=== PATIENT | male | born 1965 | race Caucasian/White ===

== ENCOUNTER 2021-06-18 13:54 | Outpatient (REF) | payer OTHER, SELFPAY ==
[2021-06-18 15:19] LABS: Influenza A PCR NEGATIVE (Negative); Influenza B PCR NEGATIVE (Negative); Resp Syncy Virus RNA Qual PCR NEGATIVE (Negative); SARS COV2 PCR INHOUSE NEGATIVE (Negative)
== END 2021-06-18 13:55 | disposition home or self-care (01) ==
LOC: HO.LNP 13:54
PROVIDERS: Visit Provider Internal Medicine
DX: Z20.822 Contact with and (suspected) exposure to COVID-19 (principal); R43.9 Unspecified disturbances of smell and taste
CPT/HCPCS: 0241U

== ENCOUNTER 2021-07-30 09:25 | Emergency (ER) | payer OTHER, SELFPAY ==
--- NOTE | ~2021-07-30 | XR_ITS ---
EXAMINATION: XR CHEST CLINICAL INFORMATION: Chest pain COMPARISON: None TECHNIQUE: 2 views of the chest were obtained. FINDINGS: The lungs are well-expanded and clear. The heart size and pulmonary vascularity is normal. There is old fracture right anterior second rib. XR/XR chest 2V IMPRESSION: Unremarkable chest examination.
--- NOTE | ~2021-07-30 | CT_ITS ---
EXAMINATION: CT ANGIOGRAM OF THE CHEST WITH AND WITHOUT CONTRAST (CT PULMONARY ANGIOGRAM FOR PE) CLINICAL INFORMATION: Reason for Exam SOB, pleuritic CP, elevated dimer COMPARISON: Chest x-ray from earlier the same day TECHNIQUE: Prior to contrast administration, noncontrast localization images were obtained. Subsequently, multidetector volumetric imaging was performed from the thoracic inlet to below the diaphragms following the administration of 65 mL Omnipaque 350 intravenous contrast. No contrast reaction reported Sagittal, coronal, and MIP oblique sagittal reformatted images were obtained on the CT workstation, uploaded to PACS, and reviewed. This CT examination was performed using dose optimization techniques as appropriate, variously including the following: *Automated exposure control *Adjustment of mA and/or kV according to patient size (this includes techniques or standardized protocols for targeted exams where dose is matched to indication/reason for exam; i.e. extremities or head) *Use of iterative reconstruction technique Total exam dose-length product 299 mGy-cm FINDINGS: QUALITY OF STUDY/CONTRAST BOLUS: Satisfactory. PULMONARY ARTERIES: No central or segmental pulmonary emboli. THORACIC AORTA: No aneurysm or dissection. LUNG: No focal consolidation, nodules or masses. PLEURA: No pleural effusion or pneumothorax. MEDIASTINUM: Normal heart size. No pericardial effusion. No hilar or mediastinal lymphadenopathy. No evidence of septal bowing or right heart strain. There is an esophageal hernia. CHEST WALL/AXILLA: No axillary or internal mammary lymphadenopathy. OSSEOUS STRUCTURES: There are multiple old right rib fractures. There are old lower left rib fractures. No acute rib fracture is seen. There is increased thoracic kyphosis and degenerative changes of the spine. . UPPER ABDOMEN: Unremarkable. No reflux of contrast into the hepatic veins to suggest elevated right heart pressures. CT/CT angio chest PE protocol IMPRESSION: No evidence of pulmonary embolism. Esophageal hernia. Old bilateral rib fractures, right greater than left. No acute rib fracture seen. VTE: negative
--- NOTE | 2021-07-30 09:26 | ECG_ITS ---
Test Reason : cp Blood Pressure : / mmHG Vent. Rate : 066 BPM Atrial Rate : 066 BPM P-R Int : 142 ms QRS Dur : 082 ms QT Int : 378 ms P-R-T Axes : 022 -05 -05 degrees QTc Int : 396 ms Normal sinus rhythm Normal ECG No previous ECGs available Referred By: Generic ED Physician Electronically Signed By:TYSON ANDREWS MD
[2021-07-30 10:05] VITALS: BP 118/84; PULSE 70; RESP 18; TEMP 36.8; O2SAT 99; BMI 25.1
[2021-07-30 10:34] LABS: MANUAL DIFF FLAG NO
[2021-07-30 10:36] LABS: Basophils Percent Auto 0.6 % (0-2); Eosinophils Absolute Auto 0.1 X10*3/uL (0.0-0.4); Eosinophils Percent Auto 1.5 % (0-4); Hematocrit 44.6 % (42.0-52.0); Hemoglobin 15.7 g/dl (14.0-18.0); Imm Gran Abs Auto 0.03 X10*3/uL (0.00-0.03); Imm Gran Pct Auto 0.4 % (0.0-0.4); Lymphocytes Absolute Auto 1.6 X10*3/uL (1.2-4.9); Lymphocytes Percent Auto 24.4 % (20-40); Mean Corpuscular HGB Conc 35.2 g/dl (31.0-36.0); Mean Corpuscular Hemoglobin 34.8 pg (27.0-33.0); Mean Corpuscular Volume 98.9 fL (80.0-98.0); Monocytes Absolute Auto 0.8 X10*3/uL (0.1-1.2); Monocytes Percent Auto 11.5 % (2-11); Neutrophils Absolute Auto 4.1 x10*3/uL (2.0-8.3); Neutrophils Percent Auto 61.6 % (45-73); Platelet Count 200 X10*3/uL (160-400); Red Blood Count 4.51 X10*6/uL (4.60-5.80); Red Cell Distribution Width 11.2 % (11.0-16.0); White Blood Count 6.7 X10*3/uL (4.8-10.8)
[2021-07-30 10:54] LABS: Alanine Aminotransferase 77 U/L (0-40); Albumin Level 4.5 g/dL (3.5-5.0); Alkaline Phosphatase 84 U/L (39-117); Anion Gap 13 (12-20); Aspartate Amino Transferase 80 U/L (5-37); Bilirubin Total 0.9 mg/dL (0.0-1.0); Blood Urea Nitrogen 13 mg/dL (9-16); COVID-19 Test Negative (Negative); Calcium 9.8 mg/dL (8.4-10.2); Carbon Dioxide 32 mmol/L (22-29); Chloride 102 mmol/L (96-108); Creatinine Clr Calc Pharmacy 92.8; Estimated Glomerular Filt Rate > 60; Glucose Random 71 mg/dL (60-115); Potassium 4.5 mmol/L (3.3-5.1); Sodium 142 mmol/L (135-145); Total Protein 7.2 g/dL (6.5-8.0)
[2021-07-30 10:59] LABS: Troponin-I High Sensitivity < 3.5 ng/L (<3.5-35.0)
--- NOTE | 2021-07-30 11:47 | ED.CHESTPAIN ---
HPI - Chest Pain General Chief Complaint: Chest Pain Stated Complaint: chest pain Time Seen by Provider: 07/30/21 11:47 Source: patient Mode of arrival: ambulatory Limitations: no limitations History of Present Illness HPI narrative: This is a 55-year-old male with no known medical history presenting to the emergency department with a chief complaint of I am having a heart attack . Patient tells me that yesterday he was having pain to his left chest, described as stabbing and then he tells me it feels like somebody is punching him in the left chest. He tells me it hurts when he presses on his chest so he knows that this is a heart attack. He tells me that he spoke to his brother who has had instant before secondary to heart attack, and his brother told me should be evaluated. Tells me his chest pain is worse with palpation, worse with sneezing and coughing and better at rest. He denies any trauma to the anterior chest. He tells me that at this time his chest pain is a 3/10. He says yesterday his pain was a 10/10, he denies diaphoresis or shortness of breath when the chest pain started. He tells me he was resting on his bed when it started. I asked him if he feels anxious and he denies. Patient does tell me that he is getting over a head cold. He denies shortness of breath, nausea, vomiting, fevers, chills, abdominal pain, diarrhea. MD complaint: chest pain Onset (ago): day(s) (2) Timing of current episode: constant Prior episodes: No Onset: during rest Pain location: left chest Pain radiation: none Severity: mild Pain scale (0-10): 3 Relieving factors: nothing Exacerbating factors: nothing Context: recent illness (improving from a head cold ) Treatment prior to arrival: none Related Data Previous Rx's Medication Instructions Recorded albuterol sulfate 90 mcg/actuation 1 inh INHALATION Q4-6H PRN #1 ea 06/18/21 breath activated powder inhaler azithromycin 250 mg tablet See Rx Instructions PO .COMPLEX #6 06/18/21 tab meloxicam 15 mg tablet 15 mg PO DAILY #14 tab 06/18/21 cyclobenzaprine 10 mg tablet 10 mg PO BEDTIME PRN #7 tab 07/30/21 naproxen 500 mg tablet 500 mg PO BID PRN #14 tab 07/30/21 Allergies Allergy/AdvReac Type Severity Reaction Status Date / Time No Known Allergies Allergy Verified 07/30/21 10:05 Review of Systems Review of Systems: Constitutional : No Weight loss, No Fever, No Chills, No Fatigue, No Malaise ENT/Mouth : No sore throat, No Rhinorrhea Eyes: No Eye Pain, No Swelling, No Redness Cardiovascular : + Chest Pain, No SOB, No Dyspnea on Exertion, No Orthopnea, No Edema, No Palpitations Respiratory : No Cough, No Sputum, No Wheezing Gastrointestinal : No Nausea, No Vomiting, No Diarrhea, No Constipation, No abdominal Pain, No Hematochezia, No Melena Genitourinary : No Dysuria, No Urinary Frequency, No Hematuria, Musculoskeletal : No joint pain, No Myalgias, No Joint Swelling Skin : No Skin Lesions, No rash Neuro : No Weakness, No Numbness, No Dizziness, No Headache All other systems reviewed and are negative Yes all other systems are reviewed and are negative [facility] Past Medical History Attestation statement: The following information was validated with the patient. Source: old records reviewed and nursing notes reviewed Social History Social History Alcohol intake: current Alcohol intake frequency: holidays/special occasions only Patient Tobacco Use Status: Former Tobacco user Use of substances other than those prescribed or required for medical reasons: No Advance Directives: No Advance Directives Information Provided: No Physical Exam Vital Signs: Vital Signs: Last Vital Signs Temp 98.2 F 07/30/21 10:05 Pulse 63 07/30/21 12:15 Resp 18 07/30/21 10:05 BP 129/83 07/30/21 12:15 Pulse Ox 100 07/30/21 12:15 BMI result Body Mass Index 25.1 VSS Appearance: Alert.? Oriented X3.? No acute distress.? Head: Normocephalic, atraumatic, no step-offs or deformities Eyes: Pupils equal, round and reactive to light.? ENT: Pharynx normal.? Neck: Normal inspection.? Neck supple.? CVS: Normal heart rate and rhythm.? Pulses normal.?+ Pain with palpation of anterior chest particularly on the left-hand side. Respiratory: No respiratory distress.? Breath sounds normal.? Abdomen: Soft and nontender.? Skin: Skin warm and dry.? Normal skin color.? Normal skin turgor.? Extremities: No lower extremity edema.? No calf ttp. 5/5 strength to bilateral upper and lower extremities Back: No midline tenderness, no C-spine tenderness, full range of motion, no CVA tenderness bilaterally Neuro: Oriented X 3.? No motor deficit.? No sensory deficit. Course Reevaluation(s) Reevaluation #1: No leukocytosis, no anemia. Transaminases are noted to be slightly elevated, likely secondary to alcohol use. Troponin negative. EKG free of ischemia. Unlikely ACS. Patient is COVID negative. Chest x-ray no acute findings. Time: 11:49 Reevaluation #2: Dimer elevated CTA ordered. Time: 14:46 Reevaluation #3: CTA negative for VTE/PE. At this time patient tells me he has a sore chest. No chest pain. Vital signs are stable. patient appears well, no acute distress.Comfortable w/ dc home likely chostochondritis. Low suspicion for ACS/PE. Comfortable with discharge home with PCP follow-up. Time: 15:34 MDM - Chest Pain MDM Narrative Medical decision making narrative: 1147 55 yo M presents with a CC I am having a heart attack since last night, reports left anterior chest wall pain. Chest pain is worse with movement, worse with palpation, worse with sneezing and inspiration. Upon physical examination patient reports pain with palpation of the left anterior chest wall. No overlying skin changes. No step-offs. Regular rate and rhythm. Lungs clear. Abdomen soft nontender nondistended. Neuro exam nonfocal. Based off patient history and physical examination I do not suspect ACS however this will be ruled out. I will also order a D-dimer to rule out PE, Although unlikely. Based off physical exam and patient history it is likely that this is costochondritis. Plan- basic labs, trop, EKG, cardiac monitoring Medical Records Data Attestation: I reviewed the patient's medical records. Lab Data Attestation: I reviewed the patient's lab results. Result diagrams: 07/30/21 10:30 07/30/21 10:30 Labs: Lab Results 07/30/21 07/30/21 07/30/21 Range/Units 10:30 10:30 10:30 WBC 6.7 (4.8-10.8) X10*3/uL RBC 4.51 L (4.60-5.80) X10*6/uL Hgb 15.7 (14.0-18.0) g/dl Hct 44.6 (42.0-52.0) % MCV 98.9 H (80.0-98.0) fL MCH 34.8 H (27.0-33.0) pg MCHC 35.2 (31.0-36.0) g/dl RDW 11.2 (11.0-16.0) % Plt Count 200 (160-400) X10*3/uL MPV 10.0 (9.4-12.4) fL Immature Gran % (Auto) 0.4 (0.0-0.4) % Neut % (Auto) 61.6 (45-73) % Lymph % (Auto) 24.4 (20-40) % [place] % (Auto) 11.5 H (2-11) % Eos % (Auto) 1.5 (0-4) % Baso % (Auto) 0.6 (0-2) % Lymph # (Auto) 1.6 (1.2-4.9) X10*3/uL [place] # (Auto) 0.8 (0.1-1.2) X10*3/uL Eos # (Auto) 0.1 (0.0-0.4) X10*3/uL Baso # (Auto) 0.0 (0.0-0.2) X10*3/uL Abs Immat Gran (auto) 0.03 (0.00-0.03) X10*3/uL Absolute Neuts (auto) 4.1 (2.0-8.3) x10*3/uL Absolute Nucleated RBC 0.000 (0.0-0.012) X10*3/uL Nucleated RBC % (auto) 0.0 (0.0-0.2) /100WBC D-Dimer High Sensitivty NG/ML Sodium 142 (135-145) mmol/L Potassium 4.5 (3.3-5.1) mmol/L Chloride 102 (96-108) mmol/L Carbon Dioxide 32 H (22-29) mmol/L Anion Gap 13 (12-20) BUN 13 (9-16) mg/dL Creatinine 0.92 (0.5-1.4) mg/dL Estim Creat Clear Calc 92.8 Estimated GFR > 60 Random Glucose 71 (60-115) mg/dL Calcium 9.8 (8.4-10.2) mg/dL Total Bilirubin 0.9 (0.0-1.0) mg/dL AST 80 H (5-37) U/L ALT 77 H (0-40) U/L Alkaline Phosphatase 84 (39-117) U/L Troponin I High Sens < 3.5 (<3.5-35.0) ng/L Total Protein 7.2 (6.5-8.0) g/dL Albumin 4.5 (3.5-5.0) g/dL COVID-19 (ALISIA) (Negative) COVID-19 Clin Com 07/30/21 07/30/21 Range/Units 10:30 12:21 WBC (4.8-10.8) X10*3/uL RBC (4.60-5.80) X10*6/uL Hgb (14.0-18.0) g/dl Hct (42.0-52.0) % MCV (80.0-98.0) fL MCH (27.0-33.0) pg MCHC (31.0-36.0) g/dl RDW (11.0-16.0) % Plt Count (160-400) X10*3/uL MPV (9.4-12.4) fL Immature Gran % (Auto) (0.0-0.4) % Neut % (Auto) (45-73) % Lymph % (Auto) (20-40) % [place] % (Auto) (2-11) % Eos % (Auto) (0-4) % Baso % (Auto) (0-2) % Lymph # (Auto) (1.2-4.9) X10*3/uL [place] # (Auto) (0.1-1.2) X10*3/uL Eos # (Auto) (0.0-0.4) X10*3/uL Baso # (Auto) (0.0-0.2) X10*3/uL Abs Immat Gran (auto) (0.00-0.03) X10*3/uL Absolute Neuts (auto) (2.0-8.3) x10*3/uL Absolute Nucleated RBC (0.0-0.012) X10*3/uL Nucleated RBC % (auto) (0.0-0.2) /100WBC D-Dimer High Sensitivty 433 NG/ML Sodium (135-145) mmol/L Potassium (3.3-5.1) mmol/L Chloride (96-108) mmol/L Carbon Dioxide (22-29) mmol/L Anion Gap (12-20) BUN (9-16) mg/dL Creatinine (0.5-1.4) mg/dL Estim Creat Clear Calc Estimated GFR Random Glucose (60-115) mg/dL Calcium (8.4-10.2) mg/dL Total Bilirubin (0.0-1.0) mg/dL AST (5-37) U/L ALT (0-40) U/L Alkaline Phosphatase (39-117) U/L Troponin I High Sens (<3.5-35.0) ng/L Total Protein (6.5-8.0) g/dL Albumin (3.5-5.0) g/dL COVID-19 (ALISIA) Negative (Negative) COVID-19 Clin Com See Note Imaging Data Chest x-ray: Attestation: I personally reviewed and interpreted this imaging study as follows: Radiologist's impression: FINDINGS: The lungs are well-expanded and clear. The heart size and pulmonary vascularity is normal. There is old fracture right anterior second rib. XR/XR chest 2V IMPRESSION: Unremarkable chest examination. ECG Data ECG #1: Attestation: I personally reviewed and interpreted this ECG as follows: ECG interpretation date: 07/30/21 ECG interpretation time: 09:27 Prior ECG tracings: not available for review Interpretation: ventricular rate of 66, ME normal, QRS normal, QT / QTC normal. EKG shows normal sinus rhythm. No ST elevations or inversions. No acute ischemia no previous to compare with. Critical Care Time Critical Care Time Critical Care Time: No Discharge Plan Discharge Clinical Impression: Anterior chest wall pain, Costochondritis, Esophageal hernia Patient Disposition: Home, Self-Care Instructions: Costochondritis (ED), Chest Wall Pain (ED) Additional Instructions: Take your medications as prescribed. If you were prescribed antibiotics today, it is important that you take your medication to their entirety, do not skip any doses, do not finish them early. Follow-up with your primary care provider this week. Return to the emergency department with new or worsening symptoms. In case of emergency call 911 COVID-19 negative today. Prescriptions: New naproxen 500 mg tablet 500 mg PO BID PRN (Reason: pain) Qty: 14 RF: 0 cyclobenzaprine 10 mg tablet 10 mg PO BEDTIME PRN (Reason: muscle spasm) Qty: 7 RF: 0 No Action azithromycin 250 mg tablet See Rx Instructions PO .COMPLEX Qty: 6 RF: 0 albuterol sulfate 90 mcg/actuation aerosol powdr breath activated 1 inh inhalation Q4-6H PRN (Reason: shortness of breath or wheezing) Qty: 1 RF: 0 meloxicam 15 mg tablet 15 mg PO DAILY Qty: 14 RF: 0 Referrals: Physician,Unknown J [Primary Care Provider] - 2 days Stand Alone Forms: Work/School Release
[2021-07-30 12:15] VITALS: BP 129/83; PULSE 63; O2SAT 100
[2021-07-30 12:44] LABS: D Dimer High Sensitivity 433 NG/ML
[2021-07-30] MEDS: iohexoL 350 MG/ML 100 ML INFUS..BTL 65 ML IV (15:03)
== END 2021-07-30 15:48 | disposition home or self-care (01) ==
PROVIDERS: Physician Assistant; Emergency Provider Emergency Medicine
DX: R07.89 Other chest pain (principal); M94.0 Chondrocostal junction syndrome [Tietze]; K44.9 Diaphragmatic hernia without obstruction or gangrene; Z20.822 Contact with and (suspected) exposure to COVID-19
CPT/HCPCS: 36415; 71046; 71275; 80053; 84484; 85025; 85379; 87635; 93005; 99284; Q9967

== ENCOUNTER 2021-10-15 12:49 | Inpatient (IN) | payer OTHER, SELFPAY ==
[2021-10-15] VITALS (7 sets, daily range): BP systolic 129–173; BP diastolic 84–91; PULSE 65–84; RESP 16–19; TEMP 36.1–36.7; O2SAT 95–98; BMI 25.1
--- NOTE | ~2021-10-15 | XR_ITS ---
EXAMINATION: XR RIBS, RIGHT CLINICAL INFORMATION: Fall. Back and rib pain. COMPARISON: Previous chest x-ray and chest CTA July 2021 TECHNIQUE: 3 views of the right ribs and one view of the chest were obtained. FINDINGS: The cardiac and mediastinal contours are stable. There is an air-fluid level that projects over the heart probably representing an esophageal hernia. Hilar and mediastinal contours are otherwise unremarkable. The lungs are clear. There is no pleural effusion or pneumothorax. There are multiple right-sided rib fractures of varying ages. There are acute right anterior 10th and 11th rib fractures. There are degenerative changes of the spine. XR/XR ribs RT min 3V w CXR1V IMPRESSION: Multiple right-sided rib fractures of varying ages. Acute right anterior 10th and 11th rib fractures. No evidence for acute disease in the chest.
--- NOTE | ~2021-10-15 | CT_ITS ---
EXAMINATION: CT CHEST, ABDOMEN AND PELVIS WITH CONTRAST CLINICAL INFORMATION: Fall and trauma with multiple rib fracture COMPARISON: CT angiogram of the chest 07/30/2021. TECHNIQUE: Multidetector volumetric imaging was performed from the thoracic inlet through the pubic symphysis following the uneventful administration of: Oral contrast: No Intravenous contrast: 100 mL Omnipaque 300 Sagittal and coronal reformatted images were obtained on the technologist workstation. This CT examination was performed using dose optimization techniques as appropriate, variously including the following: *Automated exposure control *Adjustment of mA and/or kV according to patient size (this includes techniques or standardized protocols for targeted exams where dose is matched to indication/reason for exam; i.e. extremities or head) *Use of iterative reconstruction technique FINDINGS: CHEST: LUNG: No nodules, mass, or focal consolidation. MEDIASTINUM: The mediastinum in normal. The central vascular structures are unremarkable. No hilar or mediastinal lymphadenopathy. Moderate hiatal hernia. PLEURA: No significant effusion. No pleural mass or thickening. CHEST WALL/AXILLA: In addition to numerous old right-sided rib fractures (second through ninth), there are mildly displaced acute right posterior 10, 11, and 12 rib fractures. Healing left anterior fourth rib fracture. ABDOMEN/PELVIS: LIVER, GALLBLADDER, AND BILIARY TREE: Diffuse hepatic steatosis. The gallbladder is unremarkable with no evidence of radiopaque gallstones, gallbladder wall thickening, or obvious pericholecystic inflammatory changes. PANCREAS: Normal; no mass or surrounding fluid. SPLEEN: Normal size. No focal lesion. ADRENAL GLANDS: Normal; no mass. KIDNEYS AND URETERS: The kidneys are normal in size, shape, and attenuation. No hydronephrosis, hydroureter, or calculi. GASTROINTESTINAL TRACT: Stomach and small bowel non-dilated. No colonic wall thickening or pericolonic inflammatory changes. Normal appendix. ABDOMINAL WALL: Fat within the inguinal canals bilaterally. LYMPHOVASCULAR STRUCTURES: No lymphadenopathy. The aorta is unremarkable. BLADDER: No focal mass or wall thickening seen. No bladder calculi. PELVIC VISCERA: The prostate and seminal vesicles are normal. OSSEOUS STRUCTURES: There are right first and second transverse process fractures. There does appear to be some fracture callus formation suggesting these are subacute. CT/CT abdomen pelvis w con IMPRESSION: Mildly displaced acute right posterior 10th, 11th, and 12th rib fractures. Subacute right L1 and L2 transverse process fractures. Remote bilateral rib fractures. Diffuse hepatic steatosis. No evidence of solid visceral organ injury in the chest, abdomen, or pelvis.
--- NOTE | ~2021-10-15 | CT_ITS ---
EXAMINATION: CT HEAD WITHOUT CONTRAST CT CERVICAL SPINE WITHOUT CONTRAST CLINICAL INFORMATION: Dizziness. Fall. Closed head injury. COMPARISON: CT head 05/31/2009 TECHNIQUE: Imaging was performed from the skull base to vertex without intravenous administration of contrast. In addition, helical noncontrast CT imaging was acquired through the cervical spine and source images were reviewed along with axial reconstructions and sagittal and coronal MPRs. [This CT examination was performed using dose optimization techniques as appropriate, variously including the following: *Automated exposure control *Adjustment of mA and/or kV according to patient size (this includes techniques or standardized protocols for targeted exams where dose is matched to indication/reason for exam; i.e. extremities or head) *Use of iterative reconstruction technique] DLP: 949 mGy-cm FINDINGS: HEAD: No intracranial mass, hemorrhage, or midline shift is visualized. The ventricles and sulci are proportional. No extra-axial collections are identified. The paranasal sinuses and mastoid air cells are well aerated. CERVICAL SPINE: There is no evidence of acute cervical spine fracture. Vertebral bodies remain normal in height. Cervical vertebrae have normal alignment. There is multilevel degenerative spondylosis of the cervical spine with disc height narrowing and endplate spurs and facet joint arthrosis No pre- or paravertebral soft tissue abnormality is identified. Limited assessment of the lung apices is unremarkable. Small retention cyst inferior maxillary sinuses bilaterally. CT/CT cervical spine wo con IMPRESSION: 1. No acute intracranial pathology. 2. No CT evidence of acute cervical spine fracture or traumatic subluxation
--- NOTE | ~2021-10-15 | CT_ITS ---
EXAMINATION: CT HEAD WITHOUT CONTRAST CT CERVICAL SPINE WITHOUT CONTRAST CLINICAL INFORMATION: Dizziness. Fall. Closed head injury. COMPARISON: CT head 05/31/2009 TECHNIQUE: Imaging was performed from the skull base to vertex without intravenous administration of contrast. In addition, helical noncontrast CT imaging was acquired through the cervical spine and source images were reviewed along with axial reconstructions and sagittal and coronal MPRs. [This CT examination was performed using dose optimization techniques as appropriate, variously including the following: *Automated exposure control *Adjustment of mA and/or kV according to patient size (this includes techniques or standardized protocols for targeted exams where dose is matched to indication/reason for exam; i.e. extremities or head) *Use of iterative reconstruction technique] DLP: 949 mGy-cm FINDINGS: HEAD: No intracranial mass, hemorrhage, or midline shift is visualized. The ventricles and sulci are proportional. No extra-axial collections are identified. The paranasal sinuses and mastoid air cells are well aerated. CERVICAL SPINE: There is no evidence of acute cervical spine fracture. Vertebral bodies remain normal in height. Cervical vertebrae have normal alignment. There is multilevel degenerative spondylosis of the cervical spine with disc height narrowing and endplate spurs and facet joint arthrosis No pre- or paravertebral soft tissue abnormality is identified. Limited assessment of the lung apices is unremarkable. Small retention cyst inferior maxillary sinuses bilaterally. CT/CT head/brain wo con IMPRESSION: 1. No acute intracranial pathology. 2. No CT evidence of acute cervical spine fracture or traumatic subluxation
--- NOTE | 2021-10-15 14:53 | ECG_ITS ---
Test Reason : fall Blood Pressure : / mmHG Vent. Rate : 063 BPM Atrial Rate : 063 BPM P-R Int : 148 ms QRS Dur : 084 ms QT Int : 408 ms P-R-T Axes : 008 -02 009 degrees QTc Int : 417 ms Normal sinus rhythm Normal ECG When compared with ECG of 30-JUL-2021 09:27, No significant change was found Referred By: Generic ED Physician Electronically Signed By:Ayan Joy
[2021-10-15 15:21] LABS: MANUAL DIFF FLAG NO
[2021-10-15 15:24] LABS: Basophils Absolute Auto 0.1 X10*3/uL (0.0-0.2); Basophils Percent Auto 0.5 % (0-2); Eosinophils Absolute Auto 0.1 X10*3/uL (0.0-0.4); Eosinophils Percent Auto 0.6 % (0-4); Hematocrit 45.9 % (42.0-52.0); Imm Gran Abs Auto 0.04 X10*3/uL (0.00-0.03); Imm Gran Pct Auto 0.4 % (0.0-0.4); Mean Corpuscular HGB Conc 34.9 g/dl (31.0-36.0); Mean Corpuscular Hemoglobin 33.9 pg (27.0-33.0); Mean Corpuscular Volume 97.2 fL (80.0-98.0); Mean Platelet Volume 9.9 fL (9.4-12.4); Monocytes Absolute Auto 0.8 X10*3/uL (0.1-1.2); Monocytes Percent Auto 7.4 % (2-11); Neutrophils Absolute Auto 8.8 x10*3/uL (2.0-8.3); Neutrophils Percent Auto 82.1 % (45-73); Platelet Count 198 X10*3/uL (160-400); Red Blood Count 4.72 X10*6/uL (4.60-5.80); Red Cell Distribution Width 11.8 % (11.0-16.0); White Blood Count 10.7 X10*3/uL (4.8-10.8)
[2021-10-15 15:41] LABS: Anion Gap 20 (12-20); Blood Urea Nitrogen 11 mg/dL (9-16); Calcium 9.7 mg/dL (8.4-10.2); Carbon Dioxide 24 mmol/L (22-29); Chloride 102 mmol/L (96-108); Creatinine Clr Calc Pharmacy 104.2; Estimated Glomerular Filt Rate > 60; Glucose Random 102 mg/dL (60-115); Sodium 142 mmol/L (135-145)
[2021-10-15 15:49] LABS: Troponin-I High Sensitivity < 3.5 ng/L (<3.5-35.0)
--- NOTE | 2021-10-15 19:03 | ED_ITS ---
HPI - General Adult General Chief complaint: General Medical Stated complaint: fall - dizzines Time Seen by Provider: 10/15/21 19:00 Source: patient Mode of arrival: ambulatory Limitations: no limitations History of Present Illness HPI narrative: 56 years old male who came in for evaluation after mechanical fall Patient stated that he missed a step of a stair and fell down hitting his head and right side of the chest. Patient is been having right-sided chest pain increased with movement and taking a deep breath., patient declined using any drugs or drinking any alcohol. Complaining of right-sided chest wall pain. Related Data Previous Rx's Medication Instructions Recorded albuterol sulfate 90 mcg/actuation 1 inh INHALATION Q4-6H PRN #1 ea 06/18/21 breath activated powder inhaler azithromycin 250 mg tablet See Rx Instructions PO .COMPLEX #6 06/18/21 tab meloxicam 15 mg tablet 15 mg PO DAILY #14 tab 06/18/21 cyclobenzaprine 10 mg tablet 10 mg PO BEDTIME PRN #7 tab 07/30/21 naproxen 500 mg tablet 500 mg PO BID PRN #14 tab 07/30/21 Allergies Allergy/AdvReac Type Severity Reaction Status Date / Time No Known Allergies Allergy Verified 07/30/21 10:05 Review of Systems Review of Systems: All other systems are reviewed and are negative Constitutional: Reports as per HPI and Reports no additional constitutional complaints Eyes: Reports as per HPI and Reports no additional eye complaints Reports system reviewed and no additional complaints, except as documented Cardiovascular: Reports as per HPI and Reports no additional cardiovascular complaints Respiratory: Reports as per HPI and Reports no additional respiratory complaints Gastrointestinal: Reports as per HPI and Reports no additional gastrointestinal complaints Genitourinary: Reports no additional female genitourinary complaints Musculoskeletal: Reports no additional musculoskeletal complaints Skin/Breast: Reports system reviewed and no additional complaints, except as docu Psychiatric: Reports no additional psychiatric complaints Endocrine: Reports no additional endocrine complaints Hematologic/Lymphatic: Reports no additional hematologic/lymphatic complaints Allergic/Immunologic: Reports no additional allergic/immunologic complaints Reports system reviewed and no additional complaints, except as documented and Reports Abnormal speech present [facility] Social History Social History Alcohol intake: current Alcohol intake frequency: holidays/special occasions only Patient Tobacco Use Status: Former Tobacco user Advance Directives: No Advance Directives Information Provided: No Physical Exam ED Vital Signs: Vital Signs - 24 hr 10/15/21 13:11 10/15/21 15:12 10/15/21 19:30 Temperature 97 F 98.1 F Pulse Rate 84 69 Respiratory Rate 19 18 16 Blood Pressure 129/86 144/86 H Pulse Oximetry 97 97 10/15/21 19:32 10/15/21 19:55 10/15/21 20:00 Temperature 98 F Pulse Rate 65 72 Respiratory Rate 16 16 16 Blood Pressure 137/91 H Pulse Oximetry 98 95 BMI result Body Mass Index 25.1 Vital signs have been reviewed as appeared to be correct. Blood pressure normal. Heart rate normal. Respiration rate normal. Temperature normal. Oxygen saturation normal. Appearance: Alert. Oriented X3. Appear very uncomfortable Head: Normal external exam. Normocephalic. Atraumatic. No Serrato signs noted. No raccoon eyes noted Eyes: PERRLA. EOMI. Conjunctiva and sclera normal. Eyelids normal. ENT: TM's Normal. Pharynx normal. Uvula midline. Moist mucous membranes. No trismus noted. No drooling noted. No muffled voice noted. Neck: Normal inspection. Neck supple. FROM. No adenopathy. Thyroid Normal. No meningeal signs. No neck mass noted. CVS: Normal heart rate and rhythm. Heart sound normal. No murmurs noted. Pulses normal throughout. Respiratory: No respiratory distress. Painless inspiration. Breath sounds normal. No wheezes/rales/rhonchi noted. Right chest wall tenderness No accessory muscle usage noted or decreased air movement noted. Abdomen: Soft and nontender. Bowel sounds normal in all 4 quadrants. No diste ntion noted. No organomegaly noted. No visible injury noted. Back: Right CVA tenderness. Small area of ecchymosis on right CVA. Full range of motion noted. Skin: Skin warm and dry. Normal skin color. Normal skin turgor. No rashes/lesions/lacerations noted. Extremities: No lower extremity edema. Extremities exhibit normal range of motion. Extremities nontender. Neuro: Oriented X 3. Cranial nerve exam: II-XII are grossly intact No motor deficit. No sensory deficit. Reflexes normal. Course Course Course Narrative: Assessment and plan. 56 years old male felt unbalanced and missed 1 step of stair fell down, screening chest x-ray showed multiple rib fractures, patient requires multiple doses of analgesia in the ED and to get CT done. Awaiting for CT result of the head/C-spine/chest/abdomen. Case signed out to Dr. Hopkins for final disposition according to the CT result. Medical Decision Making Lab Data Result diagrams: 10/15/21 15:17 10/15/21 15:17 Labs: Lab Results 10/15/21 10/15/21 10/15/21 Range/Units 15:17 15:17 15:17 WBC 10.7 (4.8-10.8) X10*3/uL RBC 4.72 (4.60-5.80) X10*6/uL Hgb 16.0 (14.0-18.0) g/dl Hct 45.9 (42.0-52.0) % MCV 97.2 (80.0-98.0) fL MCH 33.9 H (27.0-33.0) pg MCHC 34.9 (31.0-36.0) g/dl RDW 11.8 (11.0-16.0) % Plt Count 198 (160-400) X10*3/uL MPV 9.9 (9.4-12.4) fL Immature Gran % (Auto) 0.4 (0.0-0.4) % Neut % (Auto) 82.1 H (45-73) % Lymph % (Auto) 9.0 L (20-40) % [place] % (Auto) 7.4 (2-11) % Eos % (Auto) 0.6 (0-4) % Baso % (Auto) 0.5 (0-2) % Lymph # (Auto) 1.0 L (1.2-4.9) X10*3/uL Walton # (Auto) 0.8 (0.1-1.2) X10*3/uL Eos # (Auto) 0.1 (0.0-0.4) X10*3/uL Baso # (Auto) 0.1 (0.0-0.2) X10*3/uL Abs Immat Gran (auto) 0.04 H (0.00-0.03) X10*3/uL Absolute Neuts (auto) 8.8 H (2.0-8.3) x10*3/uL Absolute Nucleated RBC 0.000 (0.0-0.012) X10*3/uL Nucleated RBC % (auto) 0.0 (0.0-0.2) /100WBC Sodium 142 (135-145) mmol/L Potassium 4.0 (3.3-5.1) mmol/L Chloride 102 (96-108) mmol/L Carbon Dioxide 24 (22-29) mmol/L Anion Gap 20 (12-20) BUN 11 (9-16) mg/dL Creatinine 0.81 (0.5-1.4) mg/dL Estim Creat Clear Calc 104.2 Estimated GFR > 60 Random Glucose 102 D (60-115) mg/dL Calcium 9.7 (8.4-10.2) mg/dL Troponin I High Sens < 3.5 (<3.5-35.0) ng/L Urine Color Urine Appearance Urine pH (5.0-8.0) Ur Specific [place] (1.005-1.025) Urine Protein (NEG-TRACE) MG/DL Urine Glucose (UA) (NEG) MG/DL Urine Ketones (NEG) MG/DL Urine Blood (NEG) Urine Nitrite (NEG) Ur Leukocyte Esterase (NEG) Urine RBC (0) /HPF Urine WBC (0-4) /HPF Ur Squamous Epith Cells /LPF Urine Bacteria /LPF Urine Mucus /LPF 10/15/21 Range/Units 20:05 WBC (4.8-10.8) X10*3/uL RBC (4.60-5.80) X10*6/uL Hgb (14.0-18.0) g/dl Hct (42.0-52.0) % MCV (80.0-98.0) fL MCH (27.0-33.0) pg MCHC (31.0-36.0) g/dl RDW (11.0-16.0) % Plt Count (160-400) X10*3/uL MPV (9.4-12.4) fL Immature Gran % (Auto) (0.0-0.4) % Neut % (Auto) (45-73) % Lymph % (Auto) (20-40) % [place] % (Auto) (2-11) % Eos % (Auto) (0-4) % Baso % (Auto) (0-2) % Lymph # (Auto) (1.2-4.9) X10*3/uL [place] # (Auto) (0.1-1.2) X10*3/uL Eos # (Auto) (0.0-0.4) X10*3/uL Baso # (Auto) (0.0-0.2) X10*3/uL Abs Immat Gran (auto) (0.00-0.03) X10*3/uL Absolute Neuts (auto) (2.0-8.3) x10*3/uL Absolute Nucleated RBC (0.0-0.012) X10*3/uL Nucleated RBC % (auto) (0.0-0.2) /100WBC Sodium (135-145) mmol/L Potassium (3.3-5.1) mmol/L Chloride (96-108) mmol/L Carbon Dioxide (22-29) mmol/L Anion Gap (12-20) BUN (9-16) mg/dL Creatinine (0.5-1.4) mg/dL Estim Creat Clear Calc Estimated GFR Random Glucose (60-115) mg/dL Calcium (8.4-10.2) mg/dL Troponin I High Sens (<3.5-35.0) ng/L Urine Color YELLOW Urine Appearance CLEAR Urine pH 6.0 (5.0-8.0) Ur Specific [place] >= 1.030 H (1.005-1.025) Urine Protein 2+ H (NEG-TRACE) MG/DL Urine Glucose (UA) NEG (NEG) MG/DL Urine Ketones 40 (NEG) MG/DL Urine Blood 1+ H (NEG) Urine Nitrite NEG (NEG) Ur Leukocyte Esterase NEG (NEG) Urine RBC 1-4 (0) /HPF Urine WBC 0 (0-4) /HPF Ur Squamous Epith Cells 1+ /LPF Urine Bacteria NONE /LPF Urine Mucus 1+ /LPF Discharge Plan Discharge Clinical Impression: Multiple fractures of ribs Prescriptions: No Action naproxen 500 mg tablet 500 mg PO BID PRN (Reason: pain) Qty: 14 0RF Rx Instructions: Take with food cyclobenzaprine 10 mg tablet 10 mg PO BEDTIME PRN (Reason: muscle spasm) Qty: 7 0RF azithromycin 250 mg tablet See Rx Instructions PO .COMPLEX Qty: 6 0RF Rx Instructions: take 500 mg today (day 1), then 250 mg for 4 days (days 2-5) PO albuterol sulfate 90 mcg/actuation aerosol powdr breath activated 1 inh inhalation Q4-6H PRN (Reason: shortness of breath or wheezing) Qty: 1 0RF meloxicam 15 mg tablet 15 mg PO DAILY Qty: 14 0RF
[2021-10-15] MEDS: Morphine Sulfate 2 MG/ML CARTRIDGE IVPUSH (19:30)
[2021-10-15] MEDS: 0.9 % Sodium Chloride 1,000 ML 999 ML IV (19:30)
[2021-10-15] MEDS: HYDROmorphone HCl 2 MG/ML VIAL IVPUSH (19:55)
[2021-10-15 20:27] LABS: Appearance Urine CLEAR; Color Urine YELLOW; Glucose Urine UA NEG (NEG); Leukocyte Esterase Urine NEG (NEG); Nitrite Urine NEG (NEG); Specific Gravity - Urine >= 1.030 (1.005-1.025); UACC Culture Trigger NO; Urine Blood 1+ (NEG); Urine Ketones 40 MG/DL (NEG); Urine Protein 2+ MG/DL (NEG-TRACE)
[2021-10-15] MEDS: iohexoL 350 MG/ML 100 ML INFUS..BTL IV (20:31)
[2021-10-15 20:33] LABS: Squamous Epithelial Cell Urine 1+ /LPF; WBC Urine 0 /HPF (0-4)
[2021-10-15 20:34] LABS: Mucus Urine 1+ /LPF
[2021-10-15 21:33] LABS: Alanine Aminotransferase 325 U/L (0-40); Albumin Level 4.5 g/dL (3.5-5.0); Alkaline Phosphatase 104 U/L (39-117); Aspartate Amino Transferase 252 U/L (5-37); Bilirubin Direct 0.3 mg/dL (0.0-0.5); Bilirubin Total 0.8 mg/dL (0.0-1.0); Lipase 65 U/L (8-78); Total Protein 7.2 g/dL (6.5-8.0)
[2021-10-15 22:20] LABS: COVID-19 Test Negative (Negative)
[2021-10-15] MEDS: Acetaminophen 325 MG TABLET 975 MG PO (22:42)
[2021-10-15] MEDS: Cyclobenzaprine HCl 5 MG TABLET PO (22:42)
[2021-10-15] MEDS: Ketorolac Tromethamine 30 MG/ML VIAL 15 MG IVPUSH (22:43)
[2021-10-15] MEDS: Lidocaine 4 % Patch ADH..PATCH 1 PATCH TRANSDERMA (22:43)
--- NOTE | 2021-10-15 23:40 | PM.IMHP ---
History of Present Illness Date of Service: 10/15/21 Chief Complaint: fall 56-year-old male who denies any past medical history presents to the hospital with complaints of falling from his stairs. Patient reports that he was going down his stairs, he was wearing socks, he slipped, and fell about 3 steps. He hit the back of his head but had no loss of consciousness. Patient reports that he has been feeling unsteady and dizzy for the past few months, has had multiple falls in the past, he reports episodes of tremulous and increased profuse sweating that last few minutes but resolve, he reports no chest pain, no shortness of breath, no headache or change in vision, no dizziness at this time, reports significant pain in the right posterior ribcage. He also reports muscle spasm on the right side of his back with shooting pain down the back. Reports that the pain is 10/10 when it occurs is not relieved with any IV or p.o. pain medications. Patient reports heavy drinking on occasions but denies alcohol abuse. He denies any abdominal pain nausea or vomiting, no diarrhea constipation, no urinary symptoms and no lower extremity edema On arrival to the ED patient hemodynamically stable with no significant abnormal vitals Labs are significant for dated AST as well as ALT otherwise unremarkable, UA positive for blood but no infection, chest CT showed mildly displaced acute right posterior 10th 11th and 12th rib fractures, he has subacute right L1 and L2 transverse process fractures, mo bilateral rib fractures, Patient will be admitted for further management as he has intractable pain Review of Systems Review of Systems: Yes all other systems are reviewed and are negative [facility] Medical History (Updated 10/16/21 @ 06:55 by Yuval Carrizales MD) Bilateral primary osteoarthritis of knee Fall Family History (Updated 10/16/21 @ 06:56 by Yuval Carrizales MD) Mother Alcohol abuse Multiple sclerosis Father Colon cancer Stomach cancer Surgical History (Updated 10/16/21 @ 06:56 by Yuval Carrizales MD) No pertinent past surgical history Social History (Updated 10/16/21 @ 06:56 by Yuval Carrizales MD) Alcohol intake: current Alcohol intake frequency: holidays/special occasions only Patient Tobacco Use Status: Former Tobacco user Use of substances other than those prescribed or required for medical reasons: No Advance Directives: No Advance Directives Information Provided: No Meds Allergies Allergy/AdvReac Type Severity Reaction Status Date / Time No Known Allergies Allergy Verified 07/30/21 10:05 Home Medications Medication Instructions Recorded Confirmed Last Taken Type aspirin 81 mg tablet 81 mg PO DAILY 10/15/21 10/15/21 Unknown History Physical Exam Vital Signs and Narrative: Vital Signs: Last Vital Signs Temp 97.9 F 10/15/21 23:10 Pulse 71 10/15/21 23:10 Resp 16 10/15/21 23:10 BP 173/84 H 10/15/21 23:10 Pulse Ox 96 10/15/21 23:10 BMI result Body Mass Index 25.1 Results Labs CBC and Chem 7: 10/15/21 15:17 10/15/21 15:17 Labs: Laboratory Results - last 24 hr 10/15/21 10/15/21 10/15/21 15:17 15:17 20:05 MCV 97.2 MCH 33.9 H MCHC 34.9 RDW 11.8 Plt Count 198 MPV 9.9 Immature Gran % (Auto) 0.4 Neut % (Auto) 82.1 H Lymph % (Auto) 9.0 L [place] % (Auto) 7.4 Eos % (Auto) 0.6 Baso % (Auto) 0.5 Lymph # (Auto) 1.0 L [place] # (Auto) 0.8 Eos # (Auto) 0.1 Baso # (Auto) 0.1 Abs Immat Gran (auto) 0.04 H Absolute Neuts (auto) 8.8 H Absolute Nucleated RBC 0.000 Nucleated RBC % (auto) 0.0 Anion Gap 20 Estim Creat Clear Calc 104.2 Estimated GFR > 60 Random Glucose 102 D Calcium 9.7 Total Bilirubin 0.8 Direct Bilirubin 0.3 AST 252 H ALT 325 H Alkaline Phosphatase 104 D Total Protein 7.2 Albumin 4.5 Lipase 65 Urine Color YELLOW Urine Appearance CLEAR Urine pH 6.0 Ur Specific [place] >= 1.030 H Urine Protein 2+ H Urine Glucose (UA) NEG Urine Ketones 40 Urine Blood 1+ H Urine Nitrite NEG Ur Leukocyte Esterase NEG Urine RBC 1-4 Urine WBC 0 Ur Squamous Epith Cells 1+ Urine Bacteria NONE Urine Mucus 1+ COVID-19 (ALISIA) COVID-19 Clin Com 10/15/21 21:48 MCV MCH MCHC RDW Plt Count MPV Immature Gran % (Auto) Neut % (Auto) Lymph % (Auto) [place] % (Auto) Eos % (Auto) Baso % (Auto) Lymph # (Auto) [place] # (Auto) Eos # (Auto) Baso # (Auto) Abs Immat Gran (auto) Absolute Neuts (auto) Absolute Nucleated RBC Nucleated RBC % (auto) Anion Gap Estim Creat Clear Calc Estimated GFR Random Glucose Calcium Total Bilirubin Direct Bilirubin AST ALT Alkaline Phosphatase Total Protein Albumin Lipase Urine Color Urine Appearance Urine pH Ur Specific [place] Urine Protein Urine Glucose (UA) Urine Ketones Urine Blood Urine Nitrite Ur Leukocyte Esterase Urine RBC Urine WBC Ur Squamous Epith Cells Urine Bacteria Urine Mucus COVID-19 (ALISIA) Negative COVID-19 Clin Com See Note Imaging Radiologist's Impressions: Impressions Ribs X-Ray 10/15/21 13:30 IMPRESSION: Multiple right-sided rib fractures of varying ages. Acute right anterior 10th and 11th rib fractures. No evidence for acute disease in the chest. Cervical Spine CT 10/15/21 20:39 IMPRESSION: 1. No acute intracranial pathology. 2. No CT evidence of acute cervical spine fracture or traumatic subluxation Head CT 10/15/21 20:39 IMPRESSION: 1. No acute intracranial pathology. 2. No CT evidence of acute cervical spine fracture or traumatic subluxation Abdomen/Pelvis CT 10/15/21 20:41 IMPRESSION: Mildly displaced acute right posterior 10th, 11th, and 12th rib fractures. Subacute right L1 and L2 transverse process fractures. Remote bilateral rib fractures. Diffuse hepatic steatosis. No evidence of solid visceral organ injury in the chest, abdomen, or pelvis. Chest CT 10/15/21 20:41 IMPRESSION: Mildly displaced acute right posterior 10th, 11th, and 12th rib fractures. Subacute right L1 and L2 transverse process fractures. Remote bilateral rib fractures. Diffuse hepatic steatosis. No evidence of solid visceral organ injury in the chest, abdomen, or pelvis. Assessment and Plan (1) Multiple fractures of ribs: Status: Acute (2) Fall: Status: Acute (3) Intractable back pain: Status: Acute Plan 56-year-old male with no significant past medical history presents to the hospital with complaints of falling and now has significant intractable pain due to rib fractures # intractable pain secondary to multiple rib fractures - will admit for IV pain control - patient refusing to stand, and secondary to significant pain - will consult PT OT # fall - likely mechanical secondary to alcohol abuse - patient denies alcohol abuse but reports that this weekend he drank heavily - PT OT # alcohol abuse? - has evidence of alcohol withdrawal but continues to denies adamantly that he has alcohol abuse issues - patient is started on Librium by ED- will continue DVT prophylaxis: Lovenox Quality Stroke Does the patient have a stroke diagnosis?: No VTE Prior VTE?: No VTE Risk Level:: Medical - moderate - high VTE Device Contraindication: Treatment Not Indicated VTE Drug Contraindication: N/A - Med Ordered
[2021-10-16] VITALS (8 sets, daily range): BP systolic 107–149; BP diastolic 64–85; PULSE 56–76; RESP 12–20; TEMP 35.7–36.8; O2SAT 95–97
[2021-10-16] MEDS: 0.9 % Sodium Chloride Flush 3 ML SYRINGE IVFLUSH ×3 (00:37→20:05)
--- NOTE | 2021-10-16 01:45 | PC.NURSE ---
Received patient from ED into overflow room 5 around 01:20. Pt A&OX3, pleasant and cooperative. Speech is clear and appropriate. Pt states that over the last couple of weeks he has had episodes of vertigo if he looks down, denies vertigo/dizziness at present time. Pt also states he has tremors intermittently, none at present time. LS-CTA. No cough or sob. Lidocaine patch on right lower back intact. BS+. Pt denies N/V/D. PP+, no edema. Pt able to stand and walk to bed on own. Bed alarm on for safety. Urinal at bedside. No c/o pain at present time. Will continue to monitor.
--- NOTE | 2021-10-16 06:55 | PHA.MEDREC ---
Pharmacy Consult ? Medication Reconciliation Pharmacy has reviewed the medication reconciliation completed by Reyes. Destini Snell, JosefaD
[2021-10-16 07:24] LABS: MANUAL DIFF FLAG NO
[2021-10-16 07:34] LABS: Basophils Percent Auto 0.6 % (0-2); Eosinophils Absolute Auto 0.2 X10*3/uL (0.0-0.4); Eosinophils Percent Auto 2.6 % (0-4); Hematocrit 38.8 % (42.0-52.0); Hemoglobin 13.5 g/dl (14.0-18.0); Imm Gran Abs Auto 0.04 X10*3/uL (0.00-0.03); Imm Gran Pct Auto 0.6 % (0.0-0.4); Lymphocytes Absolute Auto 1.4 X10*3/uL (1.2-4.9); Mean Corpuscular HGB Conc 34.8 g/dl (31.0-36.0); Mean Corpuscular Hemoglobin 34.6 pg (27.0-33.0); Mean Corpuscular Volume 99.5 fL (80.0-98.0); Mean Platelet Volume 10.3 fL (9.4-12.4); Monocytes Absolute Auto 0.9 X10*3/uL (0.1-1.2); Monocytes Percent Auto 13.7 % (2-11); Neutrophils Percent Auto 60.5 % (45-73); Platelet Count 154 X10*3/uL (160-400); Red Cell Distribution Width 11.9 % (11.0-16.0); White Blood Count 6.6 X10*3/uL (4.8-10.8)
[2021-10-16] MEDS: Enoxaparin Sodium 40 MG/0.4 ML SYRINGE SUBCUT (07:50)
[2021-10-16] MEDS: Cyclobenzaprine HCl 10 MG TABLET PO ×3 (07:50→23:26)
[2021-10-16 07:58] LABS: Anion Gap 15 (12-20); Blood Urea Nitrogen 15 mg/dL (9-16); Calcium 8.6 mg/dL (8.4-10.2); Carbon Dioxide 27 mmol/L (22-29); Chloride 99 mmol/L (96-108); Creatinine Clr Calc Pharmacy 111.1; Estimated Glomerular Filt Rate > 60; Glucose Random 82 mg/dL (60-115); Potassium 3.9 mmol/L (3.3-5.1); Sodium 137 mmol/L (135-145)
--- NOTE | 2021-10-16 09:28 | MHC.CM.PN ---
CM met with Patient at bedside and addressed AREVALO with him, providing him with the original and placing a copy on the chart. Patient lives in a house (his room is on the second floor)with his Friend and his/her 2 adult Daughters. Patient does not feel that he will be able to return directly home(Pain/muscle spasms,inability to walk and or do stairs) and he is agreeable to the initiation of a SNF search. STR is the goal and CM has initiated and will follow for dc planning. PCP is a new PCP at [facility], after Dr. Bella retired and Patient has received Moderna vax X2.
--- NOTE | 2021-10-16 10:34 | PC.NURSE ---
Pt resting in the hospital bed c/o muscle spasms to his back. PRN flexeril given with + effect. Pt sleeping between care. Medicated per. Pt reminded to try and take deep breaths. Pt verbalized increased pain with deep inspiration. Callbell and belongings within reach.
[2021-10-16] MEDS: Morphine Sulfate 4 MG/ML CARTRIDGE IVPUSH (12:52)
--- NOTE | 2021-10-16 13:34 | HO.PM.IMPN ---
Subjective Subjective Date of Service: 10/17/21 Interval History: CC: f/u on fall, rib pain, difficulty ambulating Interval history: Still with signficant pain in the ribs Review of Systems fib pain no sob Physical Exam Vital Signs: Vital Signs: Last Vital Signs Temp 97.7 F 10/16/21 05:24 Pulse 58 10/16/21 13:18 Resp 12 10/16/21 13:18 BP 118/72 10/16/21 13:18 Pulse Ox 95 10/16/21 13:18 BMI result Body Mass Index 25.1 Const: Other: General: AO X 3, no acute distress Resp: CTA bilateral CVS: S1,S2,RRR GI: +BS, NT, no distention Skin: No rash Neuro: motor grossly intact, gait not tested as patient did not want to get out of bed d/t pain Psych: appropriate affect Objective Data Active Medications Acetaminophen (Acetaminophen 325 Mg Tablet) 650 mg PO Q6H PRN PRN Reason: Pain, Mild (Pain Scale 1-3) Cyclobenzaprine HCl (Cyclobenzaprine Hcl 10 Mg Tablet) 10 mg PO TID PRN PRN Reason: muscle spasm Last Admin: 10/16/21 07:50 Dose: 10 mg Documented by: FRAN Docusate Sodium (Docusate Sodium 100 Mg Capsule) 100 mg PO DAILY PRN PRN Reason: Constipation Enoxaparin Sodium (Enoxaparin Sodium 40 Mg/0.4 Ml Syringe) 40 mg SUBCUT Q24H ARIANNE Last Admin: 10/16/21 07:50 Dose: 40 mg Documented by: FRAN Hydromorphone HCl (Hydromorphone Hcl 1 Mg/Ml Syringe) 0.5 mg SUBCUT Q4H PRN; Protocol PRN Reason: Pain, Severe (Pain Scale 7-10) Morphine Sulfate (Morphine Sulfate 4 Mg/Ml Cartridge) 4 mg IVPUSH Q4H PRN; Protocol PRN Reason: Pain, Severe (Pain Scale 7-10) Last Admin: 10/16/21 12:52 Dose: 4 mg Documented by: FRAN Ondansetron HCl (Ondansetron Hcl 4 Mg/2 Ml Vial) 4 mg IVPUSH Q8H PRN PRN Reason: Nausea and Vomiting Sodium Chloride (0.9 % Sodium Chloride Flush 3 Ml Syringe) 3 ml IVFLUSH QSHIFT [facility] Last Admin: 10/16/21 07:47 Dose: Not Given Documented by: FRAN Non-Admin Reason: Medication Discontinued Labs CBC & Chem 7: 10/16/21 06:53 10/16/21 06:53 Labs: Laboratory Results - last 24 hr 10/15/21 10/15/21 10/15/21 15:17 15:17 20:05 MCV 97.2 MCH 33.9 H MCHC 34.9 RDW 11.8 Plt Count 198 MPV 9.9 Immature Gran % (Auto) 0.4 Neut % (Auto) 82.1 H Lymph % (Auto) 9.0 L [place] % (Auto) 7.4 Eos % (Auto) 0.6 Baso % (Auto) 0.5 Lymph # (Auto) 1.0 L [place] # (Auto) 0.8 Eos # (Auto) 0.1 Baso # (Auto) 0.1 Abs Immat Gran (auto) 0.04 H Absolute Neuts (auto) 8.8 H Absolute Nucleated RBC 0.000 Nucleated RBC % (auto) 0.0 Anion Gap 20 Estim Creat Clear Calc 104.2 Estimated GFR > 60 Random Glucose 102 D Calcium 9.7 Total Bilirubin 0.8 Direct Bilirubin 0.3 AST 252 H ALT 325 H Alkaline Phosphatase 104 D Total Protein 7.2 Albumin 4.5 Lipase 65 Urine Color YELLOW Urine Appearance CLEAR Urine pH 6.0 Ur Specific [place] >= 1.030 H Urine Protein 2+ H Urine Glucose (UA) NEG Urine Ketones 40 Urine Blood 1+ H Urine Nitrite NEG Ur Leukocyte Esterase NEG Urine RBC 1-4 Urine WBC 0 Ur Squamous Epith Cells 1+ Urine Bacteria NONE Urine Mucus 1+ COVID-19 (ALISIA) COVID-19 Clin Com 10/15/21 10/16/21 10/16/21 21:48 06:53 06:53 MCV 99.5 H MCH 34.6 H MCHC 34.8 RDW 11.9 Plt Count 154 L MPV 10.3 Immature Gran % (Auto) 0.6 H Neut % (Auto) 60.5 Lymph % (Auto) 22.0 [place] % (Auto) 13.7 H Eos % (Auto) 2.6 Baso % (Auto) 0.6 Lymph # (Auto) 1.4 [place] # (Auto) 0.9 Eos # (Auto) 0.2 Baso # (Auto) 0.0 Abs Immat Gran (auto) 0.04 H Absolute Neuts (auto) 4.0 Absolute Nucleated RBC 0.000 Nucleated RBC % (auto) 0.0 Anion Gap 15 Estim Creat Clear Calc 111.1 Estimated GFR > 60 Random Glucose 82 Calcium 8.6 D Total Bilirubin Direct Bilirubin AST ALT Alkaline Phosphatase Total Protein Albumin Lipase Urine Color Urine Appearance Urine pH Ur Specific [place] Urine Protein Urine Glucose (UA) Urine Ketones Urine Blood Urine Nitrite Ur Leukocyte Esterase Urine RBC Urine WBC Ur Squamous Epith Cells Urine Bacteria Urine Mucus COVID-19 (ALISIA) Negative COVID-19 Clin Com See Note Assessment and Plan (1) Multiple fractures of ribs: Status: Acute (2) Fall: Status: Acute Plan 56-year-old male with no significant past medical history presents to the hospital with complaints of falling and now has significant intractable pain due to rib fractures # intractable pain secondary to multiple rib fractures - will admit for IV pain control - patient refusing to stand, and secondary to significant pain PT and OT to assess # fall--he says it happened when knee gave out - patient denies alcohol abuse but reports that this weekend he drank heavily # alcohol abuse? -no evidence of alohol withdrawal -monitor CIWA DVT prophylaxis: Lovenox Quality Stroke Does the patient have a stroke diagnosis?: No VTE Prior VTE?: No VTE Risk Level:: Medical - moderate - high VTE Device Contraindication: Treatment Not Indicated VTE Drug Contraindication: N/A - Med Ordered
--- NOTE | 2021-10-16 18:08 | PC.NURSE ---
pt refusing fall risk precautions at this time
[2021-10-16] MEDS: HYDROmorphone HCl 1 MG/ML SYRINGE 0.5 MG SUBCUT (20:04)
[2021-10-17 03:44] VITALS: BP 106/79; PULSE 71; RESP 18; TEMP 36.4; O2SAT 95
[2021-10-17 07:29] VITALS: BP 114/70; PULSE 70; RESP 18; TEMP 36.4; O2SAT 95
[2021-10-17] MEDS: Cyclobenzaprine HCl 10 MG TABLET PO ×2 (07:57→23:44)
[2021-10-17] MEDS: Ketorolac Tromethamine 15 MG/ML VIAL IVPUSH ×2 (07:58→23:44)
[2021-10-17] MEDS: Enoxaparin Sodium 40 MG/0.4 ML SYRINGE SUBCUT (07:59)
[2021-10-17] MEDS: 0.9 % Sodium Chloride Flush 3 ML SYRINGE IVFLUSH ×2 (08:00→20:00)
--- NOTE | 2021-10-17 09:15 | P.PNIM_ITS ---
Subjective Subjective Date of Service: 10/17/21 Interval History: CC: f/u on fall, rib pain, difficulty ambulating Interval history: still c/o lots of pain with any minimal activity, no hypoxia, no sob Review of Systems rib pain no sob difficulty gettting out of bed d/t pain no tremors, Physical Exam Vital Signs: Vital Signs: Last Vital Signs Temp 97.6 F 10/17/21 07:29 Pulse 70 10/17/21 07:29 Resp 18 10/17/21 07:29 BP 114/70 10/17/21 07:29 Pulse Ox 95 10/17/21 07:29 BMI result Body Mass Index 25.1 Const: Other: General: AO X 3, no acute distress Resp: CTA bilateral CVS: S1,S2,RRR GI: +BS, NT, no distention Skin: No rash Neuro: motor grossly intact, gait not tested as patient did not want to get out of bed d/t pain Psych: appropriate affect Objective Data Active Medications Acetaminophen (Acetaminophen 325 Mg Tablet) 650 mg PO Q6H PRN PRN Reason: Pain, Mild (Pain Scale 1-3) Cyclobenzaprine HCl (Cyclobenzaprine Hcl 10 Mg Tablet) 10 mg PO TID PRN PRN Reason: muscle spasm Last Admin: 10/17/21 07:57 Dose: 10 mg Documented by: BRYCE Docusate Sodium (Docusate Sodium 100 Mg Capsule) 100 mg PO DAILY PRN PRN Reason: Constipation Enoxaparin Sodium (Enoxaparin Sodium 40 Mg/0.4 Ml Syringe) 40 mg SUBCUT Q24H [facility] Last Admin: 10/17/21 07:59 Dose: 40 mg Documented by: BRYCE Hydromorphone HCl (Hydromorphone Hcl 1 Mg/Ml Syringe) 0.5 mg SUBCUT Q4H PRN; Protocol PRN Reason: Pain, Severe (Pain Scale 7-10) Last Admin: 10/16/21 20:04 Dose: 0.5 mg Documented by: DORY Ketorolac Tromethamine (Ketorolac Tromethamine 15 Mg/Ml Vial) 15 mg IVPUSH Q6H PRN PRN Reason: Pain, Severe (Pain Scale 7-10) Last Admin: 10/17/21 07:58 Dose: 15 mg Documented by: HO.MORRIA Ondansetron HCl (Ondansetron Hcl 4 Mg/2 Ml Vial) 4 mg IVPUSH Q8H PRN PRN Reason: Nausea and Vomiting Sodium Chloride (0.9 % Sodium Chloride Flush 3 Ml Syringe) 3 ml IVFLUSH QSHIFT ARIANNE Last Admin: 10/17/21 08:00 Dose: 3 ml Documented by: BRYCE Labs CBC & Chem 7: 10/16/21 06:53 10/16/21 06:53 Assessment and Plan (1) Multiple fractures of ribs: Status: Acute (2) Fall: Status: Acute Plan 56-year-old male with no significant past medical history presents to the hospital with complaints of falling and now has significant intractable pain due to rib fractures # intractable pain secondary to multiple rib fractures - Pain control with dialaudid and toradol -PT eval incentive spirometry -flexeril for muscle spasm # fall--he says it happened when hsi knee gave out and it was not associated with alcohol intoxication # alcohol abuse?-- -no evidence of alohol withdrawal -monitor CIWA DVT prophylaxis: Lovenox Need for inpatient: excruciating pain from rib fracture, presently not able to control with PO medication and additional not able to participate in any activity due to pain Quality Stroke Does the patient have a stroke diagnosis?: No VTE Prior VTE?: No VTE Risk Level:: Medical - moderate - high VTE Device Contraindication: Treatment Not Indicated VTE Drug Contraindication: N/A - Med Ordered
[2021-10-17 11:24] VITALS: BP 124/73; PULSE 89; RESP 18; TEMP 36.6; O2SAT 95
--- NOTE | 2021-10-17 12:29 | MHC.CM.PN ---
Per RN/CM, Patient has been switched from OBSERVATION to INPATIENT. IMM addressed with Patient and the original has been given to him and a copy has been placed on the chart.
[2021-10-17 15:26] VITALS: BP 111/70; PULSE 70; RESP 17; TEMP 36.4; O2SAT 95
[2021-10-17 19:07] VITALS: BP 115/67; PULSE 64; RESP 20; TEMP 36.3; O2SAT 96
[2021-10-18] VITALS: BP 114/63; PULSE 63; RESP 16; TEMP 36.7; O2SAT 63
[2021-10-18 03:43] VITALS: PULSE 60
[2021-10-18 07:17] VITALS: BP 106/59; PULSE 60; RESP 18; TEMP 36.7; O2SAT 95
[2021-10-18] MEDS: 0.9 % Sodium Chloride Flush 3 ML SYRINGE IVFLUSH ×2 (07:44→15:46)
[2021-10-18] MEDS: Enoxaparin Sodium 40 MG/0.4 ML SYRINGE SUBCUT (07:44)
[2021-10-18] MEDS: Cyclobenzaprine HCl 10 MG TABLET PO (09:54)
--- NOTE | 2021-10-18 10:24 | PM.DS ---
DS: Providers Provider Date of Service: 10/18/21 Date of admission: 10/17/21 12:15 Primary care physician: KHUSHBOO Burgos DS: Diagnosis Discharge Diagnosis (1) Multiple fractures of ribs: Status: Acute (2) Fall: Status: Resolved DS: Summary Hospital Course Hospital Course: Chief Complaint: fall 56-year-old male who denies any past medical history presents to the hospital with complaints of falling from his stairs.? Patient reports that he was going down his stairs, he was wearing socks, he slipped, and fell about 3 steps.? He hit the back of his head but had no loss of consciousness.? Patient reports that he has been feeling unsteady and dizzy for the past few months, has had multiple falls in the past, he reports episodes of tremulous and increased profuse sweating that last few minutes but resolve, he reports no chest pain, no shortness of breath, no headache or change in vision, no dizziness at this time, reports significant pain in the right posterior ribcage.? He also reports muscle spasm on the right side of his back with shooting pain down the back.? Reports that the pain is 10/10 when it occurs is not relieved with any IV or p.o. pain medications.? Patient reports heavy drinking on occasions but denies alcohol abuse. He denies any abdominal pain nausea or vomiting, no diarrhea constipation, no urinary symptoms and no lower extremity edema On arrival to the ED patient hemodynamically stable with no significant abnormal vitals Labs are significant for dated AST as well as ALT otherwise unremarkable, UA positive for blood but no infection, chest CT showed mildly displaced acute right posterior 10th 11th and 12th rib fractures, he has subacute right L1 and L2 transverse process fractures, mo bilateral rib fractures, Patient will be admitted for further management as he has intractable pain Hospital course: He was admitted due intractable pain secondary to multiple rib fractures as a result of a fall that he claims was entirely mechanical in nature. Pain was managed with dilaudidl and toraldol and flexeril for spasm and seem to be doing much better at this time. Was seen by PT and he desires to go back home. Will prescribe oxycodone for pain and encourage to stop drinking alcohol, use incentive spirometry # Fall--he says it happened when hsi knee gave out and it was not associated with alcohol intoxication # alcohol abuse and risk of withdrawal-Treated with phenobarbital and did not go into full blown withdrawal Time Spent with Patient Time attestation: Total time spent providing and/or coordinating discharge services: Discharge coordination time: Greater than 30 minutes Quality: Stroke Does the patient have a stroke diagnosis?: No Physical Exam Vital Signs: Vital Signs: Last Vital Signs Temp 98.0 F 10/18/21 07:17 Pulse 60 10/18/21 07:17 Resp 18 10/18/21 07:17 BP 106/59 L 10/18/21 07:17 Pulse Ox 95 10/18/21 07:17 BMI result Body Mass Index 25.1 Discharge Plan Discharge Anticipated Discharge Date/Time: 10/18/21 10:30 Patient Disposition: Home, Self-Care Discharge Diagnosis: Fall, rib fractures Referrals: Dipak Dubon PA [Primary Care Provider] - 1 Week Discharge Medications: New cyclobenzaprine 10 mg Tablet 10 mg PO TID PRN (Reason: muscle spasm) Qty: 15 0RF oxycodone 5 mg tablet 5 mg PO Q6H PRN (Reason: pain (scale score 7-10)) Qty: 15 0RF Continued aspirin 81 mg Tablet 81 mg PO DAILY 0RF Discharge Orders: Discharge Order (Routine); Ordered 10/18/21 Ordered By: Cristian Rose Diet: advance to usual diet Activity on Discharge: As tolerated Stand Alone Forms: Patient Portal Discharge page Care Plan Goals: Full recovery from alcohol withdrawal Health Concerns: rib fractures and alcohol dependency Plan of Treatment: Take Oxycodone for pain and follow up with your Doctor in a week, call for appointment, use incentive spirometry every one to 2 hours Assessment: As above Discharge Date/Time: 10/18/21 17:23
[2021-10-18 11:24] VITALS: BP 113/58; PULSE 60; RESP 18; TEMP 36.3; O2SAT 96
[2021-10-18] MEDS: Acetaminophen 325 MG TABLET 650 MG PO (11:30)
[2021-10-18 15:39] VITALS: BP 120/77; PULSE 69; RESP 17; TEMP 36; O2SAT 94
== END 2021-10-18 17:23 | disposition home or self-care (01) | DRG 185 ==
LOC: HO.ED 23:22 → HO.EDOVER 23:43 → HO.IMC 10-16 13:27
PROVIDERS: Student in an Organized Health Care Education/Training Program; Admitting Provider Internal Medicine; Emergency Provider Emergency Medicine; PCP Physician Assistant Medical; Visit Provider Internal Medicine
DX: S22.41XA Multiple fractures of ribs, right side, initial encounter for closed fracture (principal); W10.9XXA Fall (on) (from) unspecified stairs and steps, initial encounter; F10.10 Alcohol abuse, uncomplicated; Z20.822 Contact with and (suspected) exposure to COVID-19; Z87.891 Personal history of nicotine dependence; Z79.82 Long term (current) use of aspirin; Z79.899 Other long term (current) drug therapy
CPT/HCPCS: 36415; 70450; 71101; 71260; 72125; 74177; 80048; 80076; 81001; 83690; 84484; 85025; 87635; 93005; 99285; J1170; J1650; J1885; J2270; Q9967

== ENCOUNTER 2022-06-26 09:15 | Outpatient (REF) | payer OTHER, SELFPAY ==
--- NOTE | ~2022-06-26 | XR_ITS ---
EXAMINATION: XR CHEST CLINICAL INFORMATION: Acute bronchitis COMPARISON: 10/15/2021 TECHNIQUE: 2 views of the chest were obtained. FINDINGS: The heart and pulmonary vessels appear normal. No infiltrates, effusions or lung masses seen. A nipple shadow is noted on the left. There is mild kyphosis with anterior wedging of multiple midthoracic vertebral bodies with fusion of the anterior longitudinal ligament. Degenerative changes are present in the spine. Old healed rib fractures are noted on the right. He XR/XR chest 2V IMPRESSION: No acute intrathoracic disease.
[2022-06-26 12:26] LABS: Influenza A PCR POSITIVE (Negative); Influenza B PCR NEGATIVE (Negative); Resp Syncy Virus RNA Qual PCR NEGATIVE (Negative); SARS COV2 PCR INHOUSE NEGATIVE (Negative)
== END 2022-06-26 09:16 | disposition home or self-care (01) ==
LOC: HO.HMGCX 09:15
PROVIDERS: Visit Provider Internal Medicine
DX: Z20.822 Contact with and (suspected) exposure to COVID-19 (principal); J20.9 Acute bronchitis, unspecified
CPT/HCPCS: 0241U; 71046

== ENCOUNTER 2022-08-08 02:03 | Emergency (ER) | payer OTHER, SELFPAY ==
[2022-08-08] VITALS (12 sets, daily range): BP systolic 106–171; BP diastolic 66–114; PULSE 67–112; RESP 14–118; TEMP 34–37.2; O2SAT 93–97; BMI 25.0
--- NOTE | ~2022-08-08 | CT_ITS ---
EXAMINATION: CT CHEST WITHOUT CONTRAST CT ABDOMEN AND PELVIS WITHOUT CONTRAST CLINICAL INFORMATION: Trauma COMPARISON: 10/15/2021 TECHNIQUE: Multidetector volumetric imaging was performed through the chest, abdomen and pelvis without contrast. Sagittal and coronal reformatted images were obtained on the technologist's workstation. Axial MIP volume rendering provided. This CT examination was performed using dose optimization techniques as appropriate, variously including the following: *Automated exposure control *Adjustment of mA and/or kV according to patient size (this includes techniques or standardized protocols for targeted exams where dose is matched to indication/reason for exam; i.e. extremities or head) *Use of iterative reconstruction technique DLP: 1318 mGy-cm. FINDINGS: CHEST: Lungs: The central airways are patent. No consolidation. No pleural effusion or pneumothorax. There are no pulmonary parenchymal nodules. Mediastinum: The heart is of normal size. There is no pericardial effusion. Central vascular structures are unremarkable. No hilar or mediastinal lymphadenopathy. Coronary Artery Calcification: Present. Chest Wall/Axilla: No lymphadenopathy. No chest wall mass. ABDOMEN/PELVIS: Liver, Gallbladder, Biliary Tree: The liver is normal in size, shape, and attenuation. No focal hepatic lesion or biliary ductal dilatation is present. The gallbladder is unremarkable with no evidence of radiopaque gallstones, gallbladder wall thickening, or pericholecystic inflammatory changes. Pancreas: Unremarkable. Spleen: Unremarkable. Adrenal Glands: Unremarkable. Kidneys and Ureters: The kidneys are normal in size, shape, and attenuation. No hydronephrosis, hydroureter or calculi seen. Mild symmetric perinephric stranding. Bladder: Unremarkable. Gastrointestinal Tract: Small hiatal hernia. Decompressed stomach. Normal caliber small bowel. No obstruction. No colonic wall thickening or inflammation. Diverticulosis without diverticulitis. The appendix is unremarkable. Abdominal Wall: No hernia is demonstrated. Lymphovascular Structures: Lymph nodes: Normal. Vascular: Normal caliber aorta with mild atherosclerotic calcification. Pelvic Viscera: The prostate and seminal vesicles are unremarkable. OSSEOUS STRUCTURES: Vertebral body height and alignment maintained. Diffuse bridging osteophytes with disc space narrowing at the thoracic spine. Intact sternum. Chronic healed right-sided rib fractures. No acute rib fracture. Intact pelvis. CT/CT abdomen pelvis wo IV con IMPRESSION: No acute traumatic finding of the chest, abdomen, or pelvis.
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
--- NOTE | ~2022-08-08 | XR_ITS ---
EXAMINATION: XR HIP, RIGHT CLINICAL INFORMATION: Pelvic and hip pain. COMPARISON: None TECHNIQUE: Two views of the right hip. FINDINGS: Minimal bilateral hip degenerative joint changes are seen. There is no acute fracture or dislocation. The bony pelvis is intact with the soft tissues are unremarkable. XR/XR hip RT min 2V IMPRESSION: Minimal bilateral hip osteoarthritis. No overt acute abnormality.
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
[2022-08-08] MEDS: 0.9 % Sodium Chloride 1,000 ML 999 ML IV ×2 (02:43→03:41)
[2022-08-08 02:46] LABS: Basophils Absolute Auto 0.1 X10*3/uL (0.0-0.2); Basophils Percent Auto 0.3 % (0-2); Eosinophils Percent Auto 0.1 % (0-4); Hematocrit 46.2 % (42.0-52.0); Hemoglobin 16.1 g/dl (14.0-18.0); Imm Gran Abs Auto 0.25 X10*3/uL (0.00-0.03); Lymphocytes Absolute Auto 1.2 X10*3/uL (1.2-4.9); Lymphocytes Percent Auto 5.1 % (20-40); MANUAL DIFF FLAG SCAN; Mean Corpuscular HGB Conc 34.8 g/dl (31.0-36.0); Mean Corpuscular Hemoglobin 32.7 pg (27.0-33.0); Mean Corpuscular Volume 93.7 fL (80.0-98.0); Mean Platelet Volume 8.9 fL (9.4-12.4); Monocytes Percent Auto 4.2 % (2-11); Neutrophils Absolute Auto 21.6 x10*3/uL (2.0-8.3); Neutrophils Percent Auto 89.3 % (45-73); Platelet Count 267 X10*3/uL (160-400); Red Blood Count 4.93 X10*6/uL (4.60-5.80); SCAN SMEAR FLAG 1; White Blood Count 24.2 X10*3/uL (4.8-10.8)
[2022-08-08] MEDS: Diphth,Pertus(ACell),Tet Adult 0.5 ML SYRINGE IM (02:46)
[2022-08-08 03:04] LABS: SLIDE REVIEW VERIFIED
[2022-08-08 03:07] LABS: Anion Gap 24 (12-20); Blood Urea Nitrogen 9 mg/dL (9-16); Calcium 9.5 mg/dL (8.4-10.2); Carbon Dioxide 19 mmol/L (22-29); Chloride 108 mmol/L (96-108); Creatinine Clr Calc Pharmacy 128.2; Estimated Glomerular Filt Rate > 60; Ethanol 344 mg/dL; Glucose Random 128 mg/dL (60-115); Potassium 4.5 mmol/L (3.3-5.1); Sodium 146 mmol/L (135-145)
--- NOTE | 2022-08-08 04:29 | PC.NURSE ---
patient awake, alert, speaking clear full sentences. patient given 2 sandwiches, juice, and tea with sugar per providers orders. will continue to monitor
[2022-08-08 05:12] LABS: Basophils Percent Auto 0.1 % (0-2); Hematocrit 36.2 % (42.0-52.0); Hemoglobin 12.4 g/dl (14.0-18.0); Imm Gran Abs Auto 0.07 X10*3/uL (0.00-0.03); Imm Gran Pct Auto 0.5 % (0.0-0.4); Lymphocytes Absolute Auto 0.8 X10*3/uL (1.2-4.9); Lymphocytes Percent Auto 5.7 % (20-40); MANUAL DIFF FLAG NO; Mean Corpuscular HGB Conc 34.3 g/dl (31.0-36.0); Mean Corpuscular Hemoglobin 32.1 pg (27.0-33.0); Mean Corpuscular Volume 93.8 fL (80.0-98.0); Mean Platelet Volume 8.8 fL (9.4-12.4); Monocytes Absolute Auto 0.9 X10*3/uL (0.1-1.2); Monocytes Percent Auto 6.5 % (2-11); Neutrophils Absolute Auto 12.2 x10*3/uL (2.0-8.3); Neutrophils Percent Auto 87.2 % (45-73); Platelet Count 175 X10*3/uL (160-400); Red Blood Count 3.86 X10*6/uL (4.60-5.80); Red Cell Distribution Width 13.2 % (11.0-16.0)
[2022-08-08 05:43] LABS: Anion Gap 20 (12-20); Blood Urea Nitrogen 8 mg/dL (9-16); Calcium 8.1 mg/dL (8.4-10.2); Carbon Dioxide 19 mmol/L (22-29); Chloride 110 mmol/L (96-108); Creatinine Clr Calc Pharmacy 142.9; Estimated Glomerular Filt Rate > 60; Glucose Random 167 mg/dL (60-115); Magnesium 1.3 mg/dL (1.6-2.6); Potassium 3.5 mmol/L (3.3-5.1); Sodium 145 mmol/L (135-145)
[2022-08-08] MEDS: Magnesium Sulfate/H2O 2 GM/50 ML PIGGYBACK IV (05:51)
[2022-08-08] MEDS: Dextrose 5 % and 0.9 % NaCl 1,000 ML 250 ML IVCONT ×4 (06:06→21:52)
--- NOTE | 2022-08-08 07:30 | PC.NURSE ---
PT AWAKE AND WATCHING TV, HE STATES RIGHT HIP PAIN. HE IS NO LONGER HYPOTHERMIC. ALBER SREEKANTH WAS REMOVED
[2022-08-08 07:32] LABS: MANUAL DIFF FLAG NO
[2022-08-08 07:35] LABS: Basophils Percent Auto 0.1 % (0-2); Eosinophils Percent Auto 0.1 % (0-4); Hematocrit 35.4 % (42.0-52.0); Hemoglobin 12.6 g/dl (14.0-18.0); Imm Gran Abs Auto 0.04 X10*3/uL (0.00-0.03); Imm Gran Pct Auto 0.4 % (0.0-0.4); Lymphocytes Absolute Auto 1.3 X10*3/uL (1.2-4.9); Lymphocytes Percent Auto 13.2 % (20-40); Mean Corpuscular HGB Conc 35.6 g/dl (31.0-36.0); Mean Corpuscular Hemoglobin 33.3 pg (27.0-33.0); Mean Corpuscular Volume 93.7 fL (80.0-98.0); Mean Platelet Volume 8.6 fL (9.4-12.4); Monocytes Absolute Auto 0.8 X10*3/uL (0.1-1.2); Monocytes Percent Auto 7.8 % (2-11); Neutrophils Absolute Auto 7.8 x10*3/uL (2.0-8.3); Neutrophils Percent Auto 78.4 % (45-73); Platelet Count 178 X10*3/uL (160-400); Red Blood Count 3.78 X10*6/uL (4.60-5.80); Red Cell Distribution Width 13.2 % (11.0-16.0); White Blood Count 9.9 X10*3/uL (4.8-10.8)
[2022-08-08 08:25] LABS: Blood Urea Nitrogen 8 mg/dL (9-16); Calcium 8.2 mg/dL (8.4-10.2); Creatinine Clr Calc Pharmacy 130.1; Estimated Glomerular Filt Rate > 60; Glucose Random 182 mg/dL (60-115); Magnesium 1.8 mg/dL (1.6-2.6)
[2022-08-08] MEDS: oxyCODONE HCl Immed Release 5 MG TABLET PO ×2 (08:40→18:50)
[2022-08-08 08:48] LABS: Anion Gap 14 (12-20); Carbon Dioxide 25 mmol/L (22-29); Chloride 108 mmol/L (96-108); Potassium 3.2 mmol/L (3.3-5.1); Sodium 144 mmol/L (135-145)
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
[2022-08-08 12:37] LABS: Influenza A PCR NEGATIVE (Negative); Influenza B PCR NEGATIVE (Negative); Resp Syncy Virus RNA Qual PCR NEGATIVE (Negative); SARS COV2 PCR INHOUSE NEGATIVE (Negative)
--- NOTE | 2022-08-08 13:15 | PC.NURSE ---
PT C/O CONTINUING R HIP PAIN ONLY WITH MOVEMENT. UNABLE TO SIT HIMSELF AT THE SIDE OF THE BED. PT EVAL IN, PT AGREEABLE TO REHAB CARE. SCORING LOW CIWA. VSS.
--- NOTE | 2022-08-08 14:01 | MHC.CM.ED ---
Received case management consult from Dr Moore. Patient came to the ER after a fall. Work up essentially negative but patient continues to complain of hip pain that makes ambulating difficult. Physical therapy eval completed. Short term rehab is recommended. Patient is active with [facility]. Anticipate patient will be difficult to place d/t ETOH use. CIWA will need to be zero. Patient will need a [facility] PASRR Level 2. Level 1 already submitted by T/W. Continue to monitor for d/c needs.
--- NOTE | 2022-08-08 14:26 | PHA.MEDREC ---
Pharmacy Consult ? Medication Reconciliation Pharmacy has completed the medication reconciliation. Patient reported all medications. Destini Snell, JosefaD
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
--- NOTE | 2022-08-08 20:00 | MHC.EDTECH ---
THIS PCT ASSUMED CARE OF PATIENT AT 1900 ,2000 ROUNDING DONE ,PATIENT WATCHING TELEVISION CALL SHAH WITHIN REACH .
--- NOTE | 2022-08-08 21:19 | MHC.RECOVSUP ---
? Reason for consult:ETOH o? Current location:ED06? o? Identified substance use concern:? -? Support ? Intervention: o? Community resources provided o? Harm reduction discussion ? Plan:N/A ? Additional information:PT Says he doesn't have a problem with alcohol.
--- NOTE | 2022-08-08 22:00 | MHC.EDTECH ---
PATIENT 2200 ROUNDING DONE ,VITALS SIGN TAKEN ,URINAL EMPTY ,I OFFER PATIENT IF HE WANTED ANY THING TO EAT OR DRINK ,PATIENT SAID NO HE WAS GOOD ,PATIENT IN [place] WATCHING TELEVISION ,CALL SHAH WITHIN REACH .
[2022-08-08] MEDS: Acetaminophen 325 MG TABLET 650 MG PO (22:37)
[2022-08-09] VITALS: BP 135/84; PULSE 73; RESP 16; TEMP 37.2; O2SAT 97
--- NOTE | 2022-08-09 | MHC.EDTECH ---
0000 rounding done ,vitals sign taken ,patient awake watching television ,patient urinal empty ,call phan within ,i asked patient if he needed anything ,patient said no he was good for now .
--- NOTE | 2022-08-09 02:01 | MHC.EDTECH ---
0200 round done, patient sleeping ,call phan within reach .
[2022-08-09] MEDS: Dextrose 5 % and 0.9 % NaCl 1,000 ML 250 ML IVCONT ×6 (02:07→21:36)
[2022-08-09] MEDS: Ibuprofen 600 MG TABLET PO (06:17)
[2022-08-09 06:38] VITALS: BP 131/75; PULSE 75; RESP 17; TEMP 37.1; O2SAT 96
[2022-08-09 07:08] VITALS: BP 115/71; PULSE 66; RESP 20; TEMP 37.2; O2SAT 97
[2022-08-09] MEDS: Aspirin 81 MG TAB.CHEW PO (09:10)
[2022-08-09] MEDS: Potassium Chloride ER 20 MEQ TAB.ER.PRT 40 MEQ PO (09:10)
[2022-08-09 09:13] VITALS: BP 109/71; PULSE 67; O2SAT 97
--- NOTE | 2022-08-09 10:27 | MHC.RECOVRN ---
This policy writer sales met w/ patient, patient was awake, laying in bed, under covers, alert. Patient reports no history of chronic ETOH use. 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 Patient states it was a one off situation, a one time isolated incident, I do not drink, I am not addicted to ETOH . Patient states occasionally has 1-3 beers with brother 1 time per month. Patient reports Plasma Processing Technician left information at bedside, patient reports will review if needed.
--- NOTE | 2022-08-09 12:30 | PC.NURSE ---
PT A+O X4, VSS. DENIES PAIN. DENIES ALL WITHDRAWAL SYMPTOMS, CIWA 0, HE REPORTS L HIP DISCOMFORT, WARM COMPRESS APPLIED. MEDS GIVEN DOCUMENTED. PLAN IS FOR REHAB, PT AWARE OF PLAN.
[2022-08-09 15:15] VITALS: BP 148/81; PULSE 64; RESP 18; TEMP 37.1; O2SAT 97
[2022-08-09] MEDS: Acetaminophen 325 MG TABLET 975 MG PO ×2 (15:59→22:01)
--- NOTE | 2022-08-09 19:23 | PC.NURSE ---
this rn assumed care of pt @ 1900. this rn provided pt with meal try at this time. pt expresses no new needs. pt a+o x4 pleasant and sitting up in bed. this rn educated pt on use of call phan if new needs arise
--- NOTE | 2022-08-09 22:02 | PC.NURSE ---
pt medicated according to mar. pt provided with blanket at this time. pt educated to use call phan for any additional needs
[2022-08-09 23:47] VITALS: BP 142/78; PULSE 68; RESP 18; TEMP 37; O2SAT 97
[2022-08-10] MEDS: Dextrose 5 % and 0.9 % NaCl 1,000 ML 250 ML IVCONT (01:46)
--- NOTE | 2022-08-10 03:27 | PC.NURSE ---
pt sleeping comfortably on stretcher at this time. urinal at bedside. iv fluids running at this time
[2022-08-10] MEDS: Acetaminophen 325 MG TABLET 975 MG PO ×2 (05:52→22:17)
--- NOTE | 2022-08-10 05:55 | PC.NURSE ---
pt arrousable to nurse. pt medicated according to mar
[2022-08-10 06:00] VITALS: RESP 18
[2022-08-10 07:09] VITALS: RESP 20
--- NOTE | 2022-08-10 08:42 | MHC.CM.PN ---
A clinical update has been sent to the facilities referred. Patient is 2 on the CIWA scale today. Case management will follow for bed placement.
[2022-08-10 09:02] VITALS: BP 131/82; PULSE 74; RESP 20; TEMP 36.7; O2SAT 96
[2022-08-10] MEDS: Aspirin 81 MG TAB.CHEW PO (09:03)
[2022-08-10 12:36] VITALS: BP 134/73; PULSE 66; RESP 18; TEMP 37.1; O2SAT 97
[2022-08-10 19:36] VITALS: BP 140/82; PULSE 72; RESP 16; TEMP 37.5; O2SAT 97
--- NOTE | 2022-08-10 19:55 | PC.NURSE ---
PT A&Ox4, reports mild headache. Declined PRN med at this time. CIWA score 4. Denies SI/HI. States Just a little depressed from being in this situation .
[2022-08-10 23:46] VITALS: BP 120/87; PULSE 74; RESP 16; TEMP 37.2; O2SAT 96
--- NOTE | 2022-08-11 00:01 | PC.NURSE ---
PT awake, watching TV. PT reports effectiveness with meds given. Denies any pain. Resting quietly, no apparent distress.
[2022-08-11 05:39] VITALS: BP 131/86; PULSE 76; RESP 16; TEMP 36.8; O2SAT 97
--- NOTE | 2022-08-11 05:44 | PC.NURSE ---
PT sleeping, awakens upon verbal stimuli. CIWA score 3. PT reports mild headache. VSS. Will continue to observe.
--- NOTE | 2022-08-11 08:32 | MHC.CM.ED ---
Patient remains in ER. CIWA has been documented as 1-2. Will not be able to find shor term rehab placement until CIWA is consistently 0 for at least 24 hours. Continue to monitor for d/c needs.
[2022-08-11 09:10] VITALS: BP 120/82; PULSE 70; RESP 18; TEMP 37.2; O2SAT 96
--- NOTE | 2022-08-11 10:11 | PC.NURSE ---
pt has been resting in stretcher, rr even/unlabored since breakfast. pt ate 100% breakfast, requesting to sleep at d/t lack of sleep overnight.
[2022-08-11] MEDS: Aspirin 81 MG TAB.CHEW PO (10:43)
[2022-08-11 12:36] VITALS: BP 121/79; PULSE 67; RESP 18; TEMP 36.6; O2SAT 96
--- NOTE | 2022-08-11 13:46 | MHC.CM.ED ---
Patient remains in ER. CIWA is currently 0. Clinical updates sent to [place]. Continue to monitor for d/c needs.
--- NOTE | 2022-08-11 15:00 | MHC.EDTECH ---
this pct assumed care of patient at 1500 ,patient is awake watching television ,vitals sign taken ,patient ask for a hot pack ,rn sania said it was ok for patient to have a hot pack ,call phan within reach .
[2022-08-11 16:00] VITALS: BP 115/80; PULSE 72; RESP 16; TEMP 36.4; O2SAT 97
[2022-08-11 19:53] VITALS: BP 133/72; PULSE 85; RESP 19; TEMP 37.1; O2SAT 96
--- NOTE | 2022-08-12 00:01 | PC.NURSE ---
Assumed care of pt. at 1900. Pt. resting in bed at this time. Pt. reports slight headache just from not being able to sleep in the hospital setting. Pt. under no apparent distress. Respirations are even and unlabored. . Pt. VSS. Pt. has no complaints at this time. Pt. using hot packs to help with residual soreness from his fall.
[2022-08-12] MEDS: Acetaminophen 325 MG TABLET 975 MG PO (00:13)
--- NOTE | 2022-08-12 05:53 | PC.NURSE ---
Pt. sleeping, no distress noted. Respirations are even and unlabored. Will continue to monitor.
[2022-08-12 06:06] VITALS: BP 112/67; PULSE 65; RESP 18; TEMP 37; O2SAT 96
--- NOTE | 2022-08-12 06:39 | PC.NURSE ---
Pt. sleeping in room, under no apparent distress. Respirations even and unlabored. Will continue to monitor.
[2022-08-12 07:16] VITALS: BP 124/74; PULSE 73; RESP 16; TEMP 36.7; O2SAT 96
--- NOTE | 2022-08-12 07:44 | PC.NURSE ---
patient a/ox4 . chase . heart rate regular at 73 beats per minute . breathing even and unlabored . lungs clear throughout . abrasion that is scabbed over noted to bridge of nose from fall . skin pink warm and dry . patient reports pain level 7 out of 10 on right hip from fall offered heating pack for relief . patient CIWA scale completed scoring 0 . patient aware of plan of care .
[2022-08-12] MEDS: Aspirin 81 MG TAB.CHEW PO (08:04)
--- NOTE | 2022-08-12 12:08 | PC.NURSE ---
Repost given to Hilton RN in overflow . patient ready for transport . patient aware of plan of care .
[2022-08-12 13:23] VITALS: BP 124/74; PULSE 73; O2SAT 96
[2022-08-12 14:25] VITALS: BP 118/75; PULSE 72; RESP 16; TEMP 36.9; O2SAT 98
--- NOTE | 2022-08-12 14:47 | MHC.CM.ED ---
Patient transferred to overflow unit. [facility] doesn't have a male bed today. Referral resent in [facility]. Radha Zhou will be able to offer a bed Weds 08/13. Patient aware and agreeable. Continue to monitor for d/c needs.
[2022-08-12 22:29] VITALS: BP 111/74; PULSE 75; O2SAT 97
--- NOTE | 2022-08-13 04:49 | PC.NURSE ---
pt awake watching tv, denies pain, needs at bedside. no s/s of distress.
[2022-08-13 06:00] VITALS: BP 108/64; PULSE 76; RESP 14; TEMP 36.8; O2SAT 95
[2022-08-13] MEDS: Aspirin 81 MG TAB.CHEW PO (09:12)
--- NOTE | 2022-08-13 09:59 | MHC.CM.ED ---
Patient remains in ER overflow. Radha Abelardo is able to offer a bed. Patient can leave at 1pm if repeat Covid swab is negative. Patient, Rosalind GARCIA, and Elsa CUELLO aware. Mikael BERNARD booked. [facility] with chart. HCP completed, signed and witnessed. Original given to patient. Copy placed in chart. Continue to monitor for d/c needs.
[2022-08-13 11:17] LABS: COVID-19 Test Negative (Negative); IDNOW Serial# 16C4AD1C
== END 2022-08-13 13:44 | disposition skilled nursing facility (03) ==
PROVIDERS: Emergency Medicine; Physician Assistant Medical; Emergency Provider Emergency Medicine Emergency Medical Services; PCP Physician Assistant Medical
DX: F10.220 Alcohol dependence with intoxication, uncomplicated (principal); Y90.8 Blood alcohol level of 240 mg/100 ml or more; S00.83XA Contusion of other part of head, initial encounter; S00.31XA Abrasion of nose, initial encounter; W19.XXXA Unspecified fall, initial encounter; E87.29 Other acidosis; T68.XXXA Hypothermia, initial encounter; X31.XXXA Exposure to excessive natural cold, initial encounter; E83.42 Hypomagnesemia; G35 Multiple sclerosis; Z87.891 Personal history of nicotine dependence; Z91.81 History of falling; Y93.9 Activity, unspecified; Y92.480 Sidewalk as the place of occurrence of the external cause; Y99.9 Unspecified external cause status; Z20.828 Contact with and (suspected) exposure to other viral communicable diseases; Z20.822 Contact with and (suspected) exposure to COVID-19
CPT/HCPCS: 0241U; 36415; 70450; 70486; 71250; 72125; 73502; 74176; 80048; 82077; 82550; 83735; 85025; 87635; 90471; 90715; 96361; 96365; 96366; 96367; 97110; 97162; 99285; J3475

== ENCOUNTER 2022-12-10 10:00 | Emergency (ER) | payer OTHER, SELFPAY ==
--- NOTE | 2022-12-10 10:02 | ECG_ITS ---
Test Reason : chest pain Blood Pressure : / mmHG Vent. Rate : 063 BPM Atrial Rate : 063 BPM P-R Int : 146 ms QRS Dur : 078 ms QT Int : 396 ms P-R-T Axes : 038 001 004 degrees QTc Int : 405 ms Normal sinus rhythm Normal ECG When compared with ECG of 15-OCT-2021 15:01, No significant change was found Referred By: Denise De La Rosa Electronically Signed By:Ayan Joy
[2022-12-10 10:11] VITALS: BP 134/87; BP 149/70; PULSE 65; PULSE 70; RESP 16; TEMP 36.9; O2SAT 96; O2SAT 97; BMI 24.1
--- NOTE | 2022-12-10 10:19 | ED_ITS ---
HPI - Chest Pain General Chief Complaint: Chest Pain Stated Complaint: Chest tightness x 1 hour per EMS Time Seen by Provider: 12/10/22 10:01 Source: patient Mode of arrival: EMS History of Present Illness HPI narrative: 57-year-old male who has prior history of alcohol use disorder presents via EMS with atraumatic chest pain that occurred approximately 1 hour prior to arrival in started with sudden pain to the anterior chest wall that felt like a donkey kicked me and was associated with mild dizziness but no headaches, no shortness of breath, no nausea and he denies any radiation of the pain. Patient states that currently it feels a little bit better after taking 324 mg of aspirin and EMS did give him some sublingual nitroglycerin. Patient states he has some residual chest discomfort that is vague in nature with some residual lightheadedness but otherwise feels well. Related Data Home Medications Medication Instructions Recorded Confirmed acetaminophen 325 mg tablet 650 mg PO Q6H PRN Pain 08/08/22 08/08/22 aspirin 81 mg chewable tablet 81 mg PO DAILY 08/08/22 08/08/22 Previous Rx's Medication Instructions Recorded omeprazole 40 mg capsule,delayed 40 mg PO DAILY #30 caps 12/10/22 release Allergies Allergy/AdvReac Type Severity Reaction Status Date / Time No Known Allergies Allergy Verified 06/26/22 08:56 Review of Systems Review of Systems: Pertinent positives and negatives as stated in HPI [facility] Past Medical History Source: nursing notes reviewed Medical History Bilateral primary osteoarthritis of knee Fall Surgical History No pertinent past surgical history Family History Family History Mother Alcohol abuse Multiple sclerosis Father Colon cancer Stomach cancer Social History Social History Household Members: Family Housing: House Do you presently have visiting nurse or other home services: No Alcohol intake: former Patient Tobacco Use Status: Former Tobacco user Smoked in Last 30 Days: No Use of substances other than those prescribed or required for medical reasons: No Advance Directives: Yes Advance Directives on File: Yes Advance Directives Date on File: 08/13/22 service: No Current occupational status: disabled Physical Exam Vital Signs: Vital Signs: Last Vital Signs Temp 98 F 12/10/22 12:21 Pulse 52 12/10/22 12:21 Resp 11 L 12/10/22 12:21 BP 132/81 12/10/22 12:21 Pulse Ox 97 12/10/22 12:21 O2 Del Method Room Air 12/10/22 12:21 BMI result Body Mass Index 24.1 VITAL SIGNS: Reviewed. GENERAL: Well developed, well nourished, in no acute distress. HEAD: Normocephalic/atraumatic EYES: PERRLA, EOMI EARS: Ext canals without abnormality NOSE: Nares patent bilateral OROPHARYNX: no oral lesions noted, posterior pharynx clear NECK: Supple, no adenopathy LUNGS: Normal breath sounds. No adventitious sounds or accessory muscle use. SpO2<96> CARDIOVASCULAR: Regular rate and rhythm without noted murmurs ABDOMEN: Soft, non-tender, non-distended with bowel sounds. MUSCULOSKELETAL: No tenderness, deformities, or effusions noted on gross inspection. EXTREMITIES: No cyanosis, clubbing or edema. SKIN: Inspection of the skin reveals no rashes NEUROLOGIC: Alert and oriented x 4. Strength and sensation to light touch were grossly intact x 4, baseline tremulousness in bilateral upper extremities. Medications Administered Discontinued Medications Generic Name Dose Route Start Last Admin Trade Name Freq PRN Reason Stop Dose Admin Al Hydroxide/Mg Hydroxide 30 ml 12/10/22 11:50 12/10/22 12:24 Magnesium Hydrox/Alum Hydrox 30 Ml Oral.Susp PO 12/10/22 11:51 30 ml ONCE ONE Administration Magnesium Sulfate 2 gm in 50 mls @ 150 mls/hr 12/10/22 10:52 12/10/22 12:18 Magnesium Sulfate/H2o IV 12/10/22 11:11 Infused ONCE ONE Infusion Lidocaine HCl 10 ml 12/10/22 11:50 12/10/22 12:25 Lidocaine Hcl Viscous 2 % 15 Ml Solution MUCOUS MEM 12/10/22 11:51 10 ml ONCE ONE Administration Sucralfate 1 gm 12/10/22 11:50 12/10/22 12:25 Sucralfate Oral Suspension 1 Gm/10 Ml Oral.Susp PO 12/10/22 11:51 1 gm ONCE ONE Administration Medical Decision Making Medical Decision Making MDM Narrative: 57-year-old male who arrives with possible suspicious story for ACS, EKG does not demonstrate any ischemic changes at this time, patient does not have prior history or risk factors at this time. However, pain did improve on administration of aspirin and nitro. He denies any alcohol ingestion since 8 months but noted to have BAL elevated in Jul of this year. I reviewed all investigations and serial troponins are negative, no ischemic changes on the EKG and LFTs are noted to be elevated in suspect that this is likely secondary to substance ingestion and high suspicion for alcohol use. Lipase is within normal limits, patient is afebrile and has no leukocytosis. Therefore, I do not suspect cholecystitis this or choledocholithiasis as an etiology for the liver enzymes. All results discussed with him at bedside and he was discharged home in stable condition. Differential Diagnosis Please see the discussion above Lab Data Please see the discussion above 12/10/22 10:25 12/10/22 10:25 Labs: Lab Results 12/10/22 12/10/22 12/10/22 Range/Units 10:25 10:25 10:25 WBC 5.8 (4.8-10.8) X10*3/uL RBC 4.52 L (4.60-5.80) X10*6/uL Hgb 14.8 (14.0-18.0) g/dl Hct 41.4 L (42.0-52.0) % MCV 91.6 (80.0-98.0) fL MCH 32.7 (27.0-33.0) pg MCHC 35.7 (31.0-36.0) g/dl RDW 12.2 (11.0-16.0) % Plt Count 171 (160-400) X10*3/uL MPV 9.9 (9.4-12.4) fL Immature Gran % (Auto) 0.3 (0.0-0.4) % Neut % (Auto) 76.7 H (45-73) % Lymph % (Auto) 13.4 L (20-40) % [place] % (Auto) 8.4 (2-11) % Eos % (Auto) 0.7 (0-4) % Baso % (Auto) 0.5 (0-2) % Lymph # (Auto) 0.8 L (1.2-4.9) X10*3/uL [place] # (Auto) 0.5 (0.1-1.2) X10*3/uL Eos # (Auto) 0.0 (0.0-0.4) X10*3/uL Baso # (Auto) 0.0 (0.0-0.2) X10*3/uL Abs Immat Gran (auto) 0.02 (0.00-0.03) X10*3/uL Absolute Neuts (auto) 4.5 (2.0-8.3) x10*3/uL Absolute Nucleated RBC 0.000 (0.0-0.012) X10*3/uL Nucleated RBC % (auto) 0.0 (0.0-0.2) /100WBC PT (10.0-13.1) SEC INR (0.9-1.1) Sodium 141 (135-145) mmol/L Potassium 3.4 (3.3-5.1) mmol/L Chloride 104 (96-108) mmol/L Carbon Dioxide 29 (22-29) mmol/L Anion Gap 11 L (12-20) BUN 11 (9-16) mg/dL Creatinine 0.79 (0.5-1.4) mg/dL Estim Creat Clear Calc 109.0 Estimated GFR > 60 Random Glucose 121 H (60-115) mg/dL Calcium 9.3 D (8.4-10.2) mg/dL Magnesium 0.9 L* (1.6-2.6) mg/dL Total Bilirubin 1.1 H (0.0-1.0) mg/dL AST 109 H (5-37) U/L ALT 135 H (0-40) U/L Alkaline Phosphatase 82 (39-117) U/L Troponin I High Sens < 2.7 (<3.5-35.0) ng/L Total Protein 6.2 L (6.5-8.0) g/dL Albumin 4.0 (3.5-5.0) g/dL Lipase 50 (8-78) U/L Urine Color Urine Appearance Urine pH (5.0-9.0) Ur Specific [place] (1.005-1.025) Urine Protein (Neg-Trace) mg/dL Urine Glucose (UA) (Negative) mg/dL Urine Ketones (Negative) mg/dL Urine Blood (Negative) Urine Nitrite (Negative) Ur Leukocyte Esterase (Negative) Urine RBC (0-2) /HPF Urine WBC (0-5) /HPF Ur Squamous Epith Cells (0-2) /HPF Urine Bacteria (None Seen) Hyaline Casts (0-2) /LPF Urine Opiates Screen (Not Detect) Urine Fentanyl Screen (Not Detect) Ur Barbiturates Screen (Not Detect) Ur Phencyclidine Scrn (Not Detect) Ur Amphetamines Screen (Not Detect) U Benzodiazepines Scrn (Not Detect) Urine Cocaine Screen (Not Detect) U Marijuana (THC) Screen (Not Detect) Ethyl Alcohol < 10 mg/dL 12/10/22 12/10/22 12/10/22 Range/Units 10:25 11:32 12:14 WBC (4.8-10.8) X10*3/uL RBC (4.60-5.80) X10*6/uL Hgb (14.0-18.0) g/dl Hct (42.0-52.0) % MCV (80.0-98.0) fL MCH (27.0-33.0) pg MCHC (31.0-36.0) g/dl RDW (11.0-16.0) % Plt Count (160-400) X10*3/uL MPV (9.4-12.4) fL Immature Gran % (Auto) (0.0-0.4) % Neut % (Auto) (45-73) % Lymph % (Auto) (20-40) % [place] % (Auto) (2-11) % Eos % (Auto) (0-4) % Baso % (Auto) (0-2) % Lymph # (Auto) (1.2-4.9) X10*3/uL [place] # (Auto) (0.1-1.2) X10*3/uL Eos # (Auto) (0.0-0.4) X10*3/uL Baso # (Auto) (0.0-0.2) X10*3/uL Abs Immat Gran (auto) (0.00-0.03) X10*3/uL Absolute Neuts (auto) (2.0-8.3) x10*3/uL Absolute Nucleated RBC (0.0-0.012) X10*3/uL Nucleated RBC % (auto) (0.0-0.2) /100WBC PT 11.1 (10.0-13.1) SEC INR 1.0 (0.9-1.1) Sodium (135-145) mmol/L Potassium (3.3-5.1) mmol/L Chloride (96-108) mmol/L Carbon Dioxide (22-29) mmol/L Anion Gap (12-20) BUN (9-16) mg/dL Creatinine (0.5-1.4) mg/dL Estim Creat Clear Calc Estimated GFR Random Glucose (60-115) mg/dL Calcium (8.4-10.2) mg/dL Magnesium (1.6-2.6) mg/dL Total Bilirubin (0.0-1.0) mg/dL AST (5-37) U/L ALT (0-40) U/L Alkaline Phosphatase (39-117) U/L Troponin I High Sens (<3.5-35.0) ng/L Total Protein (6.5-8.0) g/dL Albumin (3.5-5.0) g/dL Lipase (8-78) U/L Urine Color Yellow Urine Appearance Clear Urine pH 7.5 (5.0-9.0) Ur Specific [place] 1.025 (1.005-1.025) Urine Protein 100 (2+) H (Neg-Trace) mg/dL Urine Glucose (UA) Negative (Negative) mg/dL Urine Ketones Trace (Negative) mg/dL Urine Blood Negative (Negative) Urine Nitrite Negative (Negative) Ur Leukocyte Esterase Negative (Negative) Urine RBC 0-2 (0-2) /HPF Urine WBC 0-5 (0-5) /HPF Ur Squamous Epith Cells 0-2 (0-2) /HPF Urine Bacteria None Seen (None Seen) Hyaline Casts 0-2 (0-2) /LPF Urine Opiates Screen Not Detected (Not Detect) Urine Fentanyl Screen Not Detected (Not Detect) Ur Barbiturates Screen Not Detected (Not Detect) Ur Phencyclidine Scrn Not Detected (Not Detect) Ur Amphetamines Screen Not Detected (Not Detect) U Benzodiazepines Scrn Not Detected (Not Detect) Urine Cocaine Screen Not Detected (Not Detect) U Marijuana (THC) Screen Not Detected (Not Detect) Ethyl Alcohol mg/dL 12/10/22 Range/Units 12:20 WBC (4.8-10.8) X10*3/uL RBC (4.60-5.80) X10*6/uL Hgb (14.0-18.0) g/dl Hct (42.0-52.0) % MCV (80.0-98.0) fL MCH (27.0-33.0) pg MCHC (31.0-36.0) g/dl RDW (11.0-16.0) % Plt Count (160-400) X10*3/uL MPV (9.4-12.4) fL Immature Gran % (Auto) (0.0-0.4) % Neut % (Auto) (45-73) % Lymph % (Auto) (20-40) % [place] % (Auto) (2-11) % Eos % (Auto) (0-4) % Baso % (Auto) (0-2) % Lymph # (Auto) (1.2-4.9) X10*3/uL [place] # (Auto) (0.1-1.2) X10*3/uL Eos # (Auto) (0.0-0.4) X10*3/uL Baso # (Auto) (0.0-0.2) X10*3/uL Abs Immat Gran (auto) (0.00-0.03) X10*3/uL Absolute Neuts (auto) (2.0-8.3) x10*3/uL Absolute Nucleated RBC (0.0-0.012) X10*3/uL Nucleated RBC % (auto) (0.0-0.2) /100WBC PT (10.0-13.1) SEC INR (0.9-1.1) Sodium (135-145) mmol/L Potassium (3.3-5.1) mmol/L Chloride (96-108) mmol/L Carbon Dioxide (22-29) mmol/L Anion Gap (12-20) BUN (9-16) mg/dL Creatinine (0.5-1.4) mg/dL Estim Creat Clear Calc Estimated GFR Random Glucose (60-115) mg/dL Calcium (8.4-10.2) mg/dL Magnesium (1.6-2.6) mg/dL Total Bilirubin (0.0-1.0) mg/dL AST (5-37) U/L ALT (0-40) U/L Alkaline Phosphatase (39-117) U/L Troponin I High Sens < 2.7 (<3.5-35.0) ng/L Total Protein (6.5-8.0) g/dL Albumin (3.5-5.0) g/dL Lipase (8-78) U/L Urine Color Urine Appearance Urine pH (5.0-9.0) Ur Specific [place] (1.005-1.025) Urine Protein (Neg-Trace) mg/dL Urine Glucose (UA) (Negative) mg/dL Urine Ketones (Negative) mg/dL Urine Blood (Negative) Urine Nitrite (Negative) Ur Leukocyte Esterase (Negative) Urine RBC (0-2) /HPF Urine WBC (0-5) /HPF Ur Squamous Epith Cells (0-2) /HPF Urine Bacteria (None Seen) Hyaline Casts (0-2) /LPF Urine Opiates Screen (Not Detect) Urine Fentanyl Screen (Not Detect) Ur Barbiturates Screen (Not Detect) Ur Phencyclidine Scrn (Not Detect) Ur Amphetamines Screen (Not Detect) U Benzodiazepines Scrn (Not Detect) Urine Cocaine Screen (Not Detect) U Marijuana (THC) Screen (Not Detect) Ethyl Alcohol mg/dL Independent Interpretation I performed an independent interpretation of an: EKG Interpretation: Number sinus rhythm, HR-63, no STEMI, ND/QRS/QTC is within normal limits. External Record Review External record reviewed: Outpatient record and Prior outpatient labs Discharge Plan Discharge Clinical Impression: Atypical chest pain, Gastritis Patient Disposition: Home, Self-Care Instructions: Chest Pain (ED), Gastritis (ED), Diet for Stomach Ulcers and Gastritis (ED) Additional Instructions: 1. Resume all home medications as prescribed. 2. Follow-up with your primary care provider in the next 1-2 days for re- evaluation. Return to the ER for any worsening symptoms or new symptoms. Prescriptions: New omeprazole 40 mg capsule,delayed release(DR/EC) 40 mg PO DAILY Qty: 30 0RF No Action acetaminophen 325 mg Tablet 650 mg PO Q6H PRN (Reason: Pain) aspirin 81 mg Tablet,Chewable 81 mg PO DAILY
[2022-12-10 10:30] LABS: MANUAL DIFF FLAG NO
[2022-12-10 10:32] LABS: Basophils Percent Auto 0.5 % (0-2); Eosinophils Percent Auto 0.7 % (0-4); Hematocrit 41.4 % (42.0-52.0); Hemoglobin 14.8 g/dl (14.0-18.0); Imm Gran Abs Auto 0.02 X10*3/uL (0.00-0.03); Imm Gran Pct Auto 0.3 % (0.0-0.4); Lymphocytes Absolute Auto 0.8 X10*3/uL (1.2-4.9); Lymphocytes Percent Auto 13.4 % (20-40); Mean Corpuscular HGB Conc 35.7 g/dl (31.0-36.0); Mean Corpuscular Hemoglobin 32.7 pg (27.0-33.0); Mean Corpuscular Volume 91.6 fL (80.0-98.0); Mean Platelet Volume 9.9 fL (9.4-12.4); Monocytes Absolute Auto 0.5 X10*3/uL (0.1-1.2); Monocytes Percent Auto 8.4 % (2-11); Neutrophils Absolute Auto 4.5 x10*3/uL (2.0-8.3); Neutrophils Percent Auto 76.7 % (45-73); Platelet Count 171 X10*3/uL (160-400); Red Blood Count 4.52 X10*6/uL (4.60-5.80); Red Cell Distribution Width 12.2 % (11.0-16.0); White Blood Count 5.8 X10*3/uL (4.8-10.8)
[2022-12-10 10:39] LABS: Prothrombin Time 11.1 SEC (10.0-13.1)
[2022-12-10 10:52] LABS: Alanine Aminotransferase 135 U/L (0-40); Alkaline Phosphatase 82 U/L (39-117); Anion Gap 11 (12-20); Aspartate Amino Transferase 109 U/L (5-37); Bilirubin Total 1.1 mg/dL (0.0-1.0); Blood Urea Nitrogen 11 mg/dL (9-16); Calcium 9.3 mg/dL (8.4-10.2); Carbon Dioxide 29 mmol/L (22-29); Chloride 104 mmol/L (96-108); Estimated Glomerular Filt Rate > 60; Ethanol < 10 mg/dL; Glucose Random 121 mg/dL (60-115); Lipase 50 U/L (8-78); Magnesium 0.9 mg/dL (1.6-2.6); Potassium 3.4 mmol/L (3.3-5.1); Sodium 141 mmol/L (135-145); Total Protein 6.2 g/dL (6.5-8.0)
[2022-12-10 10:57] LABS: Troponin-I High Sensitivity < 2.7 ng/L (<3.5-35.0)
--- NOTE | 2022-12-10 11:05 | PC.NURSE ---
assumed care of this pt at 1000. pt a&o x4, calm, and cooperative. pt came in with IV access inserted by EMS in the left wrist. reporting chest tightness/pressure and acid reflux. pt resting quietly on stretcher in no apparent distress. vss. wctm
[2022-12-10] MEDS: Magnesium Sulfate/H2O 2 GM/50 ML PIGGYBACK IV (11:21)
[2022-12-10 11:56] LABS: Amphetamine Screen Urine Not Detected (Not Detect); Barbiturates, Urine Not Detected (Not Detect); Benzodiazepines Screen Urine Not Detected (Not Detect); Cannabinoid Screen Urine Not Detected (Not Detect); Cocaine Screen Urine Not Detected (Not Detect); Fentanyl, urine Not Detected (Not Detect); Opiate Screen Urine Not Detected (Not Detect); Phencyclidine Screen Urine Not Detected (Not Detect)
[2022-12-10 12:21] VITALS: BP 132/81; PULSE 52; RESP 11; TEMP 36.6; O2SAT 97
[2022-12-10] MEDS: Magnesium Hydrox/Alum Hydrox 30 ML ORAL.SUSP PO (12:24)
[2022-12-10] MEDS: Sucralfate Oral Suspension 1 GM/10 ML ORAL.SUSP PO (12:25)
[2022-12-10] MEDS: Lidocaine HCl Viscous 2 % 15 ML SOLUTION 10 ML MUCOUS MEM (12:25)
[2022-12-10 12:32] LABS: Appearance Urine Clear; Color Urine Yellow; Glucose Urine UA Negative (Negative); Leukocyte Esterase Urine Negative (Negative); Nitrite Urine Negative (Negative); PH 7.5 (5.0-9.0); Specific Gravity - Urine 1.025 (1.005-1.025); UMIC TRIGGER UACC YES; Urine Blood Negative (Negative); Urine Ketones Trace mg/dL (Negative); Urine Protein 100 (2+) mg/dL (Neg-Trace)
[2022-12-10 12:35] LABS: Bacteria Urine None Seen (None Seen); Hyaline Casts Urine 0-2 /LPF (0-2); RBC Urine 0-2 /HPF (0-2); Squamous Epithelial Cell Urine 0-2 /HPF (0-2); WBC Urine 0-5 /HPF (0-5)
--- NOTE | 2022-12-10 12:35 | PC.NURSE ---
pt medicated per sep. currently resting quietly on stretcher.
[2022-12-10 12:52] LABS: Troponin-I High Sensitivity < 2.7 ng/L (<3.5-35.0)
== END 2022-12-10 13:16 | disposition home or self-care (01) ==
PROVIDERS: Emergency Provider Student in an Organized Health Care Education/Training Program
DX: R07.89 Other chest pain (principal); K29.70 Gastritis, unspecified, without bleeding; Z87.891 Personal history of nicotine dependence; Z79.899 Other long term (current) drug therapy
CPT/HCPCS: 36415; 80053; 80307; 81001; 83690; 83735; 84484; 85025; 85610; 93005; 96365; 99284; 99285; J3475

== ENCOUNTER 2025-03-01 16:36 | Emergency (ER) | payer OTHER, SELFPAY ==
--- NOTE | ~2025-03-01 | XR_ITS ---
CLINICAL HISTORY: substernal chest pain 2 view chest x-ray Comparison: CR/SR - XR CHEST 2 VIEWS - 06/26/22 09:26 EST Findings: Heart size is normal. No consolidation, pleural effusion or pneumothorax. Hiatal hernia. No acute fracture. Accentuated dorsal kyphosis and stable degenerative changes. IMPRESSION: 1. No acute findings. 2. Hiatal hernia. This document has been electronically signed by: Kylee Ann MD on 03/01/2025 18:01:08
--- NOTE | ~2025-03-01 | CT_ITS ---
CLINICAL HISTORY: confusion CT head without contrast Comparison: CT/REG/SR - CT HEAD WITHOUT IV CONTRAST - 08/08/22 03:36 EST Findings: No intra-axial mass, midline shift, hydrocephalus, or acute hemorrhage. No significant atrophy-like change or white matter disease. Left maxillary sinus and bilateral ethmoid air cell mucosal thickening. The orbits are within normal limits. No acute skull fracture. IMPRESSION: 1. No acute intracranial findings. 2. Sinus inflammatory disease. This document has been electronically signed by: Kylee Ann MD on 03/01/2025 21:02:22
--- NOTE | 2025-03-01 16:38 | ECG_ITS ---
Test Reason : CHEST PAIN Blood Pressure : */* mmHG Vent. Rate : 87 BPM Atrial Rate : 87 BPM P-R Int : 152 ms QRS Dur : 86 ms QT Int : 378 ms P-R-T Axes : 15 -77 32 degrees QTcB Int : 454 ms Normal sinus rhythm Left anterior fascicular block Inferior infarct , age undetermined Anterolateral infarct , age undetermined Abnormal ECG When compared with ECG of 10-Dec-2022 10:11, Anterior infarct is now Present Anterolateral infarct is now Present Nonspecific T wave abnormality now evident in Anterolateral leads Referred By: Deann Berry Electronically Signed By: TORSTEN MARTINEZ
[2025-03-01 17:00] VITALS: BP 139/81; PULSE 84; RESP 18; TEMP 36.9; O2SAT 98; BMI 25.2
--- NOTE | 2025-03-01 17:00 | ED.CHESTPAIN ---
HPI - Chest Pain General Chief Complaint: Chest Pain Stated Complaint: ? heart attack, tightness/pain chest Time Seen by Provider: 03/01/25 17:15 Source: patient and old records reviewed Mode of arrival: ambulatory Limitations: other (very poor historian) History of Present Illness ED Provider: MARCELLE CONDON narrative: 59 yo male who came in stating he had chest pain and that he had a heart attack ages ago . He states he has been okay at home takes 4 medications at home but isn't sure what they are but he takes them. He is not aware who is spooler operator automatic is and states he has been okay at home using stairs but was sitting down watching TV had central chest pressure and feeling sick about 1 hour ago. His pain is improving. He notes no recent infections. His EKG is abnormal but isn't sure if he has a stent or where he was worked up for his IN. I obtained records from remote access to [facility] and in fact he had a Vfib arrest 01/20/25 with resp railure, CHRISTAL to D1, akinesis of almost the entire heart and 40% EF, as well as hypokalemia, and ICU stay requiring CPR and shocks. He was sent home on aspirin and plavix. I asked him if he cannot remember what happened a month ago and he states well no I can't remember if I am forgetting. He denies any recent head trauma. I asked if he suffered some impairment from the event cognitively and he declines. He is very ronel and states this was all ages ago. He is not in cardiac rehab and states he lives alone. he then states he didn't really have pain he just knew it was coming per [facility] notes EKG was recorded as anterolateral STEMI complaint: chest pain Onset (ago): hour(s) (1) Timing of current episode: now resolved Prior episodes: Yes Onset: during rest Pain location: substernal Pain radiation: none Severity: mild Quality: tightness Relieving factors: nothing Exacerbating factors: nothing Context: recent illness and other Associated symptoms: nausea Treatment prior to arrival: none Related Data Home Medications ?Medication ?Instructions ?Recorded ?Confirmed acetaminophen 325 mg tablet 650 mg PO Q6H PRN Pain 08/08/22 08/08/22 aspirin 81 mg chewable tablet 81 mg PO DAILY 08/08/22 08/08/22 Previous Rx's ?Medication ?Instructions ?Recorded omeprazole 40 mg capsule,delayed 40 mg PO DAILY #30 caps 12/10/22 release Allergies Allergy/AdvReac Type Severity Reaction Status Date / Time No Known Allergies Allergy Verified 03/01/25 17:02 Review of Systems Review of Systems: Constitutional : No Weight loss, No Fever, No Chills ENT/Mouth : No sore throat, No Rhinorrhea Eyes: No Eye Pain, No Swelling Cardiovascular : pos Chest Pain, no SOB, no Dyspnea on Exertion, No Orthopnea, No Edema, No Palpitations Respiratory : No Cough, No Sputum Gastrointestinal : pos Nausea, No Vomiting, No Diarrhea, No abdominal Pain, No Hematochezia, No Melena Genitourinary : No Dysuria, No Urinary Frequency Musculoskeletal : No joint pain, No Myalgias, No Joint Swelling Skin : No Skin Lesions, No rash Neuro : No Weakness, No Numbness, No Dizziness, No Headache All other systems reviewed and are negative PMFSH Past Medical History Attestation statement: The following information was validated with the patient. Source: old records reviewed Medical History Cardiac arrest HTN (hypertension) Myocardial infarction Multiple fractures of ribs Fall Bilateral primary osteoarthritis of knee Surgical History No pertinent past surgical history Family History Family History Mother Alcohol abuse Multiple sclerosis Father Colon cancer Stomach cancer Social History Social History Household Members: Family Housing: House Do you presently have visiting nurse or other home services: No Alcohol intake: former Comment: PT REUSED HIGH FALL PROTOCOL Patient Tobacco Use Status: Former Tobacco user Smoked in Last 30 Days: No Use of substances other than those prescribed or required for medical reasons: No Advance Directives: Yes Advance Directives on File: Yes Advance Directives Date on File: 08/13/22 Do you have a plan to hurt others: No Plan service: No Current occupational status: disabled Physical Exam Vital Signs: Vital Signs: Last Vital Signs Temp 97.7 F 03/01/25 21:54 Pulse 76 03/01/25 21:54 Resp 20 03/01/25 21:54 BP 136/84 03/01/25 21:54 Pulse Ox 96 03/01/25 21:54 O2 Del Method Room Air 03/01/25 21:54 BMI result Body Mass Index 25.2 Appearance: Alert. Oriented X3. No acute distress. Flat affect Eyes: Pupils equal, round and reactive to light. ENT: Pharynx normal. Neck: Normal inspection. Neck supple. CVS: Normal heart rate and rhythm. Pulses normal. Respiratory: No respiratory distress. Breath sounds normal. Abdomen: Soft and nontender. Skin: Skin warm and dry. Normal skin color. Extremities: No lower extremity edema. distal pulses intact Neuro: Oriented X 3. No motor deficit. No sensory deficit. CN2-12 intact Course Course Course Narrative: This is a Rapid Medical Examination (RME) performed by Ed Berry PA-C in triage. Full HPI, ROS, assessment and treatment plan per primary provider in the Main ED. Hx: 59 yo M here w/ substernal chest pain x1 hour that came on gradually while seated watching tv. personal hx of IN. father and brother w/ hx of multiple MIs. Plan: labs, ekg Reevaluation(s) Reevaluation #1: 725pm aware of plan states he feels fine and wants to go home. He states his symptoms started with his memory years ago after falling out of a tree stand. Reevaluation #2: signed out to Haja Lozoya DO 03/01/252012 Medications Administered Discontinued Medications Generic Name Dose Route Start Last Admin Trade Name Freq PRN Reason Stop Dose Admin Magnesium Sulfate 2 gm in 50 mls @ 25 mls/hr 03/01/25 17:41 03/01/25 19:47 Magnesium Sulfate/H2o IV 03/01/25 19:40 Infused ONCE ONE Infusion Thiamine HCl 200 mg/ Sodium 102 mls @ 204 mls/hr 03/01/25 17:45 03/01/25 20:08 Chloride IV 03/01/25 18:14 Infused ONCE ONE Infusion Medical Decision Making Medical Decision Making [facility] Narrative: 59 yo male with STEMI complicated by vfib arrest, ICU stay, resp failure, rib fractures who comes in with c/o feeling he was going to have chest pain. He has no recollection of the events or that he had a stent placed. I am trying to reach family but no answer. He has no signs of head trauma other than memory loss he has no neuro deficits. Plan to obtain trop x 2, EKG serial, ddimer. He notes his pain is gone at this time. I am concerned he is not taking his medications and could have occlusion due to that. He is a very poor historian. Unclear if he is intoxicated at this time as well I am sending off ETOH level. for his ETOH level of 33 he is still a very poor historian I am going to order head CT to rule any issues like SDH Differential Diagnosis Differential Diagnoses: The differential diagnosis associated with the presentation includes non compliance, ACS, low prob VTE, TBI? Admission/Observation Consideration of admission/observation: Escalation of care including admission/observation considered Lab Data MDM Lab Attestation statement: I reviewed the patient's lab results. IV mag ordered, age adjusted ddimer negative under 285 03/01/25 17:15 03/01/25 17:15 Labs: Lab Results 03/01/25 03/01/25 03/01/25 Range/Units 17:15 17:28 20:14 WBC 10.8 (4.8-10.8) X10*3/uL RBC 4.96 (4.60-5.80) X10*6/uL Hgb 16.1 (14.0-18.0) g/dl Hct 44.3 (42.0-52.0) % MCV 89.3 (80.0-98.0) fL MCH 32.5 (27.0-33.0) pg MCHC 36.3 H (31.0-36.0) g/dl RDW 12.7 (11.0-16.0) % Plt Count 249 D (160-400) X10*3/uL MPV 9.3 L (9.4-12.4) fL Immature Gran % (Auto) 0.3 (0.0-0.4) % Neut % (Auto) 69.9 (45-73) % Lymph % (Auto) 16.8 L (20-40) % [place] % (Auto) 9.1 (2-11) % Eos % (Auto) 3.3 (0-4) % Baso % (Auto) 0.6 (0-2) % Lymph # (Auto) 1.8 (1.2-4.9) X10*3/uL [place] # (Auto) 1.0 (0.1-1.2) X10*3/uL Eos # (Auto) 0.4 (0.0-0.4) X10*3/uL Baso # (Auto) 0.1 (0.0-0.2) X10*3/uL Abs Immat Gran (auto) 0.03 (0.00-0.03) X10*3/uL Absolute Neuts (auto) 7.5 (2.0-8.3) x10*3/uL Absolute Nucleated RBC 0.000 (0.0-0.012) X10*3/uL Nucleated RBC % (auto) 0.0 (0.0-0.2) /100WBC PT 13.9 H (10.9-12.4) SEC INR 1.2 H (0.9-1.1) APTT 33.5 (26.7-34.1) SEC D-Dimer High Sensitivty 236 NG/ML Sodium 142 (135-145) mmol/L Potassium 3.7 (3.3-5.1) mmol/L Chloride 105 (96-108) mmol/L Carbon Dioxide 23 (22-29) mmol/L Anion Gap 18 (12-20) BUN 14 (9-16) mg/dL Creatinine 0.85 (0.5-1.4) mg/dL Estim Creat Clear Calc 102.1 Estimated GFR > 60 Random Glucose 119 H (60-115) mg/dL Calcium 8.9 (8.4-10.2) mg/dL Magnesium 1.3 L* (1.6-2.6) mg/dL Total Bilirubin 0.3 (0.0-1.0) mg/dL AST 52 H (5-37) U/L ALT 45 H (0-40) U/L Alkaline Phosphatase 139 H (39-117) U/L Troponin I High Sens 17.3 D 17.9 (<3.5-35.0) ng/L B-Natriuretic Peptide 230 H (<100) pg/mL Total Protein 7.2 (6.5-8.0) g/dL Albumin 4.3 (3.5-5.0) g/dL Lipase 53 (8-78) U/L Ethyl Alcohol 33 mg/dL Independent Interpretation I performed an independent interpretation of an: EKG and Plain X-Ray (normal) Interpretation: Rate: 87 Rhythm: NSR [place]: left Normal P waves. Normal RAFITA. Normal QRS complex. ST T wave : q waves in lateral leads, poor R wave progression, subtle ST depression III, no contiguous ST 1mm, T wave inversions V2-V6 qTC:454 prior studies: changed from 2022 The study has been interpreted contemporaneously by me. EKG #2 Rate: 79 Rhythm: NSR [place]: left Normal P waves. Normal RAFITA. Normal QRS complex. ST T wave : q waves I and aVL, diffuse T wave inversions in anterior leads but no DIANNE qTC: 483 prior studies: T wave inversions more pronounced. The study has been interpreted contemporaneously by me. . Radiology Impression Discussion of test interpretation with radiology: I have reviewed the radiologist's reading. Independent Historian tried to call his brother listed as RADHA but line is External Record Review External record reviewed: Inpatient record and Outpatient record Discharge Plan Discharge Clinical Impression: Atypical chest pain, Hypomagnesemia, Alcohol use disorder Patient Disposition: Home, Self-Care Instructions: Chest Pain (ED), Abuse of Alcohol (ED), Hypomagnesemia (ED) Additional Instructions: DISCHARGE DIAGNOSES: Chest pain unclear cause at this time heart attack excluded but other cardiac or serious cardiopulmonary causes could not completely be excluded. You desire to go home after shared decision-making discussion you will be discharged home HISTORY OF PRESENTATION: ?Chest pain EMERGENCY DEPARTMENT COURSE,TESTS, TREATMENTS: While in the ED today you had cardiac heart attack enzyme test that were negative an EKG that showed likely changes that occurred after your heart attack DISCHARGE MEDICATIONS: ?[We have made no changes to your regular medication regimen] FOLLOW-UP: ?Call your primary or general physician soon as possible to discuss your symptoms, your ED visit and to discuss follow up plans [06] INSTRUCTIONS ?& RETURN PRECAUTIONS: If any symptoms change first call your primary physician, if it is after-hours your primary doctors office should have a provider lead quality control technician you can speak with. If the symptoms are severe or very concerning to you then call 911 or return to the ED. [07] Haja Schreiber MD Emergency Physician [facility] Prescriptions: No Action acetaminophen 325 mg Tablet 650 mg PO Q6H PRN (Reason: Pain) aspirin 81 mg Tablet,Chewable 81 mg PO DAILY omeprazole 40 mg capsule,delayed release(DR/EC) 40 mg PO DAILY Qty: 30 0RF Referrals: Physician,Unknown J [Physician, Medical] Referral Note: Please call [facility] cardiology at [phone] to follow up urgently after your complicated cardiac episode in December. Interventions: ED Discharge Assessment Last Done: 03/01/25 21:54 Discharge Date/Time: 03/01/25 21:54 Print Language: Montenegrin
[2025-03-01 17:21] LABS: MANUAL DIFF FLAG NO
[2025-03-01 17:23] LABS: Hematocrit 44.3 % (42.0-52.0); Hemoglobin 16.1 g/dl (14.0-18.0); Imm Gran Abs Auto 0.03 X10*3/uL (0.00-0.03); Imm Gran Pct Auto 0.3 % (0.0-0.4); Lymphocytes Absolute Auto 1.8 X10*3/uL (1.2-4.9); Mean Corpuscular HGB Conc 36.3 g/dl (31.0-36.0); Mean Corpuscular Hemoglobin 32.5 pg (27.0-33.0); Mean Corpuscular Volume 89.3 fL (80.0-98.0); NRBC Abs Auto 0.000 X10*3/uL (0.0-0.012); NRBC Pct Auto 0.0 /100WBC (0.0-0.2); Platelet Count 249 X10*3/uL (160-400); Red Blood Count 4.96 X10*6/uL (4.60-5.80); White Blood Count 10.8 X10*3/uL (4.8-10.8)
--- NOTE | 2025-03-01 17:24 | ECG_ITS ---
Test Reason : REPEAT EKG CP Blood Pressure : */* mmHG Vent. Rate : 79 BPM Atrial Rate : 79 BPM P-R Int : 156 ms QRS Dur : 88 ms QT Int : 422 ms P-R-T Axes : 15 -54 19 degrees QTcB Int : 483 ms Normal sinus rhythm Anterolateral infarct (cited on or before 01-Mar-2025) Abnormal ECG When compared with ECG of 01-Mar-2025 16:44, No significant changes seen Referred By: Qing Lozoya Electronically Signed By: TORSTEN MARTINEZ
[2025-03-01 17:41] LABS: INTERNATIONAL NORM RATIO 1.2 (0.9-1.1); Prothrombin Time 13.9 SEC (10.9-12.4)
[2025-03-01 17:42] LABS: Alanine Aminotransferase 45 U/L (0-40); Albumin Level 4.3 g/dL (3.5-5.0); Alkaline Phosphatase 139 U/L (39-117); Anion Gap 18 (12-20); Aspartate Amino Transferase 52 U/L (5-37); Blood Urea Nitrogen 14 mg/dL (9-16); Calcium 8.9 mg/dL (8.4-10.2); Carbon Dioxide 23 mmol/L (22-29); Chloride 105 mmol/L (96-108); Creatinine Clr Calc Pharmacy 102.1; Estimated Glomerular Filt Rate > 60; Lipase 53 U/L (8-78); Magnesium 1.3 mg/dL (1.6-2.6); Potassium 3.7 mmol/L (3.3-5.1); Sodium 142 mmol/L (135-145); Total Protein 7.2 g/dL (6.5-8.0)
[2025-03-01 17:43] LABS: D Dimer High Sensitivity 236 NG/ML
[2025-03-01 17:43] LABS: Troponin-I High Sensitivity 17.3 ng/L (<3.5-35.0)
[2025-03-01 17:44] LABS: Partial Thromboplastin Time 33.5 SEC (26.7-34.1)
[2025-03-01] MEDS: Magnesium Sulfate/H2O 2 GM/50 ML PIGGYBACK IV (17:47)
[2025-03-01 17:55] LABS: B Type Natriuretic Peptide 230 pg/mL (<100)
[2025-03-01 18:01] VITALS: BP 120/79; PULSE 73; RESP 23; TEMP 36.5; O2SAT 93
--- OUTSIDE RECORDS SUMMARY | 2025-03-01 18:24 | XMS_ITS | Clinical Summary ---
Author Organization [facility] Address [address] [place] [address] Care Team Providers Care Typing Bookkeeper Name Role Phone Marion Hope MD Primary Care Provider [phone] Allergies Active Allergy Reactions Criticality Noted Date Comments Hydrocodone 08/23/2018 Other reaction(s): itchy Hydrocodone-Acetaminophen Itching 07/01/2012 Medications Medication Sig Dispensed Refills Start Date End Date Status ibuprofen (ADVIL,MOTRIN) 800 MG tablet Take 800 mg by mouth. 0 03/19/2019 Active naproxen (NAPROSYN) 500 MG tablet TK 1 T PO BID WC 11 03/01/2019 Activ e omeprazole (PriLOSEC) 20 MG capsule Take 20 mg by mouth. 0 11/05/2017 Active oxyCODONE (ROXICODONE) 5 MG immediate release tablet Take 1 tablet (5 mg total) by mouth every 6 (six) hours as needed for pain. Do not take until after surgery 25 tablet 0 06/27/2019 Active promethazine (PHENERGAN) 12.5 MG tablet Take 1 tablet (12.5 mg total) by mouth every 8 (eight) hours as needed. 4 tablet 0 06/27/2019 Active gabapentin (NEURONTIN) 300 MG capsule Take 300mg for 3 days at bedtime. Please start 1 night prior to surgery 3 capsule 0 06/27/2019 Active meloxicam (MOBIC) 15 MG tablet Take 1 tablet daily for 7 days following surgery 7 tablet 0 06/27/2019 Active Active Problems Problem Noted Date Diagnosed Date Traumatic complete tear of right rotator cuff Social History Tobacco Use Types Packs/Day Years Used Date Smoking Tobacco: Former Cigarettes 0.5 Q uit: 12/2018 Smokeless Tobacco: Never Alcohol Use Standard Drinks/Week Comments Yes 0 (1 standard drink = 0.6 oz pur e alcohol) Sex and Gender Information Value Date Recorded Sex Assigned at Not on file Gender Identity Not on file Sexual Orientation Not on file Last Filed Vital Signs Vital Sign Reading Time Taken Comments Blood Pressure - - Pulse - - Temperature - - Respiratory Rate - - Oxygen Saturation - - Inhaled Oxygen Concentration - - Weight 83.9 kg (185 lb) 09/26/2019 3:51 PM EST Height 172.7 cm (5' 8 ) 09/26/2019 3:51 PM EST Body Mass Index 28.13 09/26/2019 3:51 PM EST Plan of Treatment Health Maintenance Due Date Last Done Comments Hepatitis B Vaccines (1 of 3 - 3-dose series) 1967 Hepatitis C Screening 1967 COVID-19 Vaccine (#1) 03/22/1968 Depression Screening 1979 BMI Counseling 1985 Preventative Health Evaluation 1985 Colon Cancer Screening (Colonoscopy) 2012 Shingrix-Zoster Vaccine (1 o f 2) 2017 Influenza Vaccine (#1) 2025 8, 05/08/2017, 04/06/2015 DTap / Tdap / Td (2 - Td or Tdap) 02/20/2028 02/19/2018 Pneumococcal Vaccine Aged Out No long er eligible based on patient's age to complete this topic RSV Ped < 20 months Aged Out No longe r eligible based on patient's age to complete this topic Care Teams Typing Bookkeeper Relationship Specialty Start Date End Date Marion Hope MD PCP - General Internal Medicine 04/26/19
--- OUTSIDE RECORDS SUMMARY | 2025-03-01 18:24 | XMS_ITS | Clinical Summary ---
Author Organization [facility] ity Address [address] [place] [address] Care Team Providers Care Coordinator Skill Training Program Name Role Phone Dipak Dubon Primary Care Provider [phone] Allergies Active Allergy Reactions Criticality Noted Date Comments Hydrocodone-Acetaminophen Itching 07/01/2012 Medications ACETAMINOPHEN EXTRA STRENGTH ORAL Take 500 mg by mouth 4 times daily. 4 Active albuterol HFA (PROAIR HFA ; PROVENTIL HFA ; VENTOLIN HFA) 90 mcg/actuation inhaler Inhale 2 Puffs into the lungs every 4 hours as needed for Cough, Wheezing or Shortness of Breath. 4 Active betamethasone valerate (VALISONE) 0.1 % cream Apply 1 Application topically 2 (two) times a day. 8 Active ibuprofen (ADVIL,MOTRIN) 800 mg tablet Take 1 Tablet by mouth every 8 hours as needed for Pain. 4 Active indomethacin (INDOCIN) 50 mg capsule Take 1 Capsule by mouth 3 times daily (with meals) for 7 days. 4 Active lidocaine (LIDODERM) 5 % patch Place 1 Patch onto the skin every 24 hours. Apply for no more than 12 hours in any 24 hour period. 4 Active omega-3 acid ethyl esters (LOVAZA) 1 gram capsule Take 3 Caps by mouth daily. 8 Active omeprazole (PriLOSEC) [address] capsule Take 1 capsule (20 mg total) by mouth 1 (one) time each day. 4 Active Active Problems Problem Noted Date Diagnosed Date Cataract, nuclear sclerotic, both eyes 9 Acute gout of right ankle 12/09/2017 Hiatal hernia 03/27/2015 Reflux esophagitis 03/27/2015 Overview (07/21/2024): Severe at EGD 03/27/2015, not on PPI rx. Stricture and stenosis of esophagus 03/27/2015 Hyperlipidemia 03/23/2013 Transaminitis 03/23/2013 Biceps muscle tear 07/09/2012 Immunizations Name Administration Dates Next Due COVID-19 (Moderna/Spikevax) 12yo and older 07/23/2023 Influenza Quadravalent, MDCK , 0.5ml, preservative free (Flucelvax) 6mo and older 07/23/2023 Influenza trivalent, 0.5mL, preservative free (Fluarix; FluLaval; Fluzone) ages 6mo and older (Afluria) 3 years and older 04/28/2018,05/08/2017,05/09/2016,2014 Moderna SARS-CoV-2 COVID-19, mRNA, LNP-S, preservative free 08/13/2022 Tdap Tetanus diptheria acell ular pertussis (Boostrix; Adacel) 7yo and older 08/08/2022,02/19/2018 Surgical History Surgery Date Site/Laterality Comments COLONOSCOPY 2014 PROCEDURE: HISTORICAL COLONOSCOPY; COMMENT: 9 mm prox TC polyp: Tubular adenoma UPPER GASTROINTESTINAL ENDOSCOPY 2014 PROCEDURE: MS UPPER GI ENDOSCOPY PERFORMED; COMMENT: severe esophagitis; slight stricture; small HH. Path: Reflux esophagitis Medical History Medical History Date Comments Shoulder pain 07/01/2012 DX:Shoulder pain GERD (gastroesophageal reflux disease) 07/01/2012 DX:GERD (gastroesophageal reflux disease) Biceps muscle tear 07/09/2012 DX:Biceps mus fatimah tear Transaminitis 03/23/2013 DX:Transaminitis Historical Medical DX 03/23/2013 DX:Hyperli pidemia LDL goal < 130 Fractured coccyx ([facility] V2 4, [facility] V28) - 1999 DX:Fractured coccyx ([facility]); COMMENT: no surgery Family hx of colon cancer 03/05/2015 DX:Fam samaria hx of colon cancer Reflux esophagitis 03/27/2015 DX:Reflux eso phagitis; COMMENT: Severe at EGD 03/27/2015, not on PPI rx. Family History Medical History Relation Name Comments Colon cancer Father dx 52 Arthritis Maternal Grandmother Arthritis Mother Cirrhosis Mother etoh Relation Name Status Comments Father Maternal Grandmother Mother Social History Tobacco Use Types Packs/Day Years Used Date Smoking Tobacco: Former Cigarettes Q uit: 08/27/2012 Smokeless Tobacco: Never Alcohol Use Standard Drinks/Week Comments Yes 0 (1 standard drink = 0.6 oz pur e alcohol) Sex and Gender Information Value Date Recorded Sex Assigned at Not on file Legal Sex Male 9:25 PM EST Gender Identity Not on file Sexual Orientation Not on file Obstetrics History Last Filed Vital Signs Vital Sign Reading Time Taken Comments Blood Pressure 126/84 12/07/2023 2:32 PM EDT Pulse 68 12/07/2023 2:32 PM EDT Temperature - - Respiratory Rate - - Oxygen Saturation - - Inhaled Oxygen Concentration - - Weight 85.3 kg (188 lb) 12/07/2023 2:32 PM EDT Height 177.8 cm (5' 10 ) 12/07/2023 2:32 PM EDT Body Mass Index 26.98 12/07/2023 2:32 PM EDT Plan of Treatment Health Maintenance Due Date Last Done Comments Hepatitis B Vaccines (1 of 3 - 19+ 3-dose series) 1986 Pneumococcal Vaccine: 50+ Years (1 of 1 - PCV) 2017 Zoster Vaccines (1 of 2) 2017 Colorectal Cancer Screening: Colonoscopy 06/28/2022 03/27/2015 HIV Screening 06/28/2022 Hepatitis C Screening 06/28/2022 Social Influencers of Health Screening 06/28/2022 Cholesterol Screening (Lipid Panel) 06/16/2023 06/16/2018 COVID-19 Vaccine ( season) 2024 07/23/2023, 08/13/2022, 05/15/2021, Additional history exists Depression Screening 07/27/2024 Influenza Vaccine (#1) 2025 , 04/28/2018, 05/08/2017, Additional history exists DTaP,Tdap,and Td Vaccines (3 - Td or Tdap) 08/08/2032 08/08/2022, 02/19/2018 HIB Vaccines Aged Out No longer eligi ble based on patient's age to complete this topic HPV Vaccines Aged Out No longer eligi ble based on patient's age to complete this topic Hepatitis A Vaccines Aged Out No long er eligible based on patient's age to complete this topic IPV Vaccines Aged Out No longer eligi ble based on patient's age to complete this topic MMR Vaccines Aged Out No longer eligi ble based on patient's age to complete this topic Meningococcal ACWY Vaccine Aged Out N o longer eligible based on patient's age to complete this topic Meningococcal B Vaccine Aged Out No l onger eligible based on patient's age to complete this topic RSV Immunization Patients Under 20 months Aged Out No longer eligible based on patient's age to complete this topic Varicella Vaccines Aged Out No longer eligible based on patient's age to complete this topic Procedures Procedure Name Priority Date/Time Associated Diagnosis Comments LIPID PANEL Routine 06/16/2018 COLONOSCOPY Routine 03/27/2015 from Last 3 Months or Most Recently Relevant to Health Maintenance Results * (ABNORMAL) Lipid panel (06/16/2018) LDL/HDL Ratio 5(A) 0 - 4 Triglycerides 227(A) 0 - 150 mg/dL Cholesterol 301(A) 0 - 200 mg/dL HDL 65 >=40 mg/dL LDL Cholesterol 191(A) 0 - 100 mg/dL Blood Venous blood specimen / Unknown us Historical Provider LAB BLOOD ORDERABLES Lizet l Result * Colonoscopy (03/27/2015) Colonoscopy abnormal, abstracted Comment:COLSC FLX W/RMVL OF TUMOR POLYP LESION SNARE TQ Anatomical Region Laterality Modality Other us Historical Provider HEALTH MAINTENANCE Final Result from Last 3 Months or Most Recently Relevant to Health Maintenance Care Teams Coordinator Skill Training Program Relationship Specialty Start Date End Date Dipak Dubon PA PCP - General Internal Medicine 03/01/20
--- OUTSIDE RECORDS SUMMARY | 2025-03-01 18:24 | XMS_ITS ---
Author Name [facility] Organization Unknown History of Medication Use Medication Directions Dispensed Refills Start Date End Date Stat tramadol 50 mg tablet TAKE ONE TABLET BY MOUTH EVERY 8 HOURS NEEDED FOR PAIN FOR UP TO 7 DAYS. active Problems Problem Status Onset Date Problem Type Date of Resoluti on Source Full thickness rotator cuff tear active 2023-08-26 ProblemAct [facility] Rotator cuff tear arthropathy active 2023-08-26 ProblemAct [facility] Encounters Encounter Type Encounter Reason Primary Diagnosis Location Date Ambulatory [facility] 08/25/2023 Ambulatory [facility] 08/25/2023 Ambulatory [facility] 08/25/2023 Ambulatory [facility] 08/25/2023 Ambulatory [facility] 08/25/2023 Ambulatory [facility] 08/24/2023 Ambulatory [facility] 08/19/2023
--- OUTSIDE RECORDS SUMMARY | 2025-03-01 18:24 | XMS_ITS | Clinical Summary ---
Author Organization [facility] Address [address] [address] Phone Care Team Providers Care Damascener Name Role Phone Pcp, Unknown Primary Care Provider Unavailabl e Social History Tobacco Use Types Packs/Day Years Used Date Smoking Tobacco: Never Assessed Education Answer Date Recorded Are you interested in more education? Not on bhakti e 11/22/2022 Are you concerned about learning? Not on file 11/22/2022 No 11/22/2022 No 11/22/2022 Digital Access Answer Date Recorded No 12/23/2022 No 12/23/2022 Reliable internet access at home? Not on file 12/23/2022 Device with a working camera? Not on file Sex and Gender Information Value Date Recorded Sex Assigned at Not on file Legal Sex Male 8:21 AM EST Gender Identity Not on file Sexual Orientation Not on file Plan of Treatment Health Maintenance Due Date Last Done Comments LIPID PANEL 1967 DEPRESSION SCREENING 1979 SMOKING Hx and SMOKELESS TOBACCO SCREENING 1980 HEPATITIS C SCREENING 1985 HIV ONE-TIME SCREENING (18-6 5 YEARS) 1985 COLOGUARD 2012 COLONOSCOPY 2012 COLORECTAL CANCER SCREENING 2012 FIT TEST 2012 FOBT 2012 SIGMOIDOSCOPY 2012 VIRTUAL COLONOSCOPY 2012 PNEUMOCOCCAL VACCINES (50+ years) (1 of 1 - PCV) 2017 ZOSTER VACCINES (1 of 2) 2017 COVID-19 VACCINE (4 - 2023-2 5 season) 2024 08/13/2022, 05/15/2021, 04/17/2021 Adult Td,Tdap Booster 08/08/2032 08/08/2022 , 02/19/2018 HEPATITIS A VACCINES Aged Out No long er eligible based on patient's age to complete this topic HIB VACCINES Aged Out No longer eligi ble based on patient's age to complete this topic MENINGOCOCCAL VACCINES (ACWY) Aged Out No longer eligible based on patient's age to complete this topic MENINGOCOCCAL VACCINES (B) Aged Out N o longer eligible based on patient's age to complete this topic Medical Devices Not on file Care Teams Damascener Relationship Specialty Start Date End Date Pcp, Unknown PCP - General 08/15/22 Additional Source Comments The information contained in this document represents components of the legal health record. It is not the complete legal health record.[facility]
[2025-03-01] MEDS: Thiamine HCL 200 MG in 0.9 % Sodium Chloride 100 ML 204 MG IV (19:38)
[2025-03-01 19:41] VITALS: BP 122/84; PULSE 76; RESP 20; O2SAT 96
[2025-03-01 20:39] LABS: Troponin-I High Sensitivity 17.9 ng/L (<3.5-35.0)
[2025-03-01 21:54] VITALS: BP 136/84; PULSE 76; RESP 20; TEMP 36.5; O2SAT 96
== END 2025-03-01 21:54 | disposition home or self-care (01) ==
PROVIDERS: Emergency Medicine; Physician Assistant Medical; Emergency Provider Emergency Medicine
DX: R07.89 Other chest pain (principal); E83.42 Hypomagnesemia; F10.10 Alcohol abuse, uncomplicated; Y90.1 Blood alcohol level of 20-39 mg/100 ml; R41.0 Disorientation, unspecified; R06.02 Shortness of breath; Z51.81 Encounter for therapeutic drug level monitoring; Z79.899 Other long term (current) drug therapy
CPT/HCPCS: 36415; 70450; 71046; 80053; 80307; 83690; 83735; 83880; 84484; 85025; 85379; 85610; 85730; 93005; 96365; 96366; 96367; 99285; J3411; J3475

== ENCOUNTER → 2025-03-01 16:38 | Outpatient (BNV) | payer OTHER, SELFPAY | PROVIDERS: Emergency Provider Emergency Medicine; Visit Provider Internal Medicine | DX: I44.4 Left anterior fascicular block (principal); R94.31 Abnormal electrocardiogram [ECG] [EKG]; R07.9 Chest pain, unspecified | CPT/HCPCS: 93010 ==

== ENCOUNTER → 2025-03-01 17:02 | Outpatient (BNV) | payer OTHER, SELFPAY | PROVIDERS: Emergency Provider Emergency Medicine; Visit Provider Specialist | DX: J01.90 Acute sinusitis, unspecified (principal); R07.2 Precordial pain | CPT/HCPCS: 70450; 71046 ==